=== PATIENT | female | born 1985 | race African-American/Black ===

== ENCOUNTER 2019-06-01 16:06 | Emergency (ER) | payer OTHER ==
[2019-06-01] MEDS ORDERED: ONDANSETRON 4 MG/2 ML VIAL IVP STA (16:37)
[2019-06-01] MEDS ORDERED: MORPHINE 2 MG/ML CARPUJECT IVP STA (16:37)
--- NOTE | 2019-06-01 16:37 | ED Physician Documentation ---
History of Present Illness - Stated complaint Stated Complaint: ABD PAIN - Chief complaint Chief Complaint: Abd Pain - Additonal information Additional information: This is a 34-year-old female presents with suprapubic lower abdominal pain. She states that she has had some pain along the incision that she has from 2 years ago. She has actually had some irritation in this area multiple times in the past, which she attributed to irritation from the scar, but this is worse than usual. She has not had any vomiting or diarrhea. No fever. This seemed to come on out of the blue. She tried taking Tylenol and this did not improve her symptoms. She had a period 1 week ago, but had a small amount of vaginal bleeding today as well. She denies concern for , denies concern for sexual transmitted infection, she is sexually active with her only. No vaginal itching or burning, no abnormal discharge. 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 - Present Medications Home Medications: Ambulatory Orders Medication Instructions Recorded Confirmed Cephalexin [Keflex] 500 mg PO Q6H #28 capsule 06/01/19 - Allergies Allergies/Adverse Reactions: Allergies Allergy/AdvReac Type Severity Reaction Status Date / Time No Known Drug Allergies Allergy Verified 06/01/19 16:20 - Living Situation Living Arrangement: reports: At home PD ED PE NORMAL - Vitals Vital signs reviewed: Yes - General General: Alert and oriented X 3, Other (Nontoxic-appearing) - HEENT HEENT: PERRL - Neck Neck: Supple, no meningeal sign - Cardiac Cardiac: RRR, No murmur - Respiratory Respiratory: Clear bilaterally - Abdomen Abdomen: Normal bowel sounds, Soft, Non distended, Other (There is some mild tenderness to palpation along the lower abdomen/prepubic region. This is central, she is not tender in the left or right lateral lower abdomen. No upper abdominal tenderness) - Derm Derm: Warm and dry - Extremities Extremities: No deformity - Neuro Neuro: Alert and oriented X 3 - Psych Psych: Normal mood, Normal affect Results - Vitals Vitals: Vital Signs - 24 hr 06/01/19 06/01/19 06/01/19 16:18 16:30 17:34 Temperature 36.8 C 36.9 C 37.1 C Heart Rate 78 73 66 Respiratory 17 20 16 Rate Blood Pressure 106/64 113/70 O2 Saturation 100 100 98 06/01/19 17:57 Temperature 36.8 C Heart Rate 63 Respiratory 16 Rate Blood Pressure 107/62 O2 Saturation 100 Oxygen O2 Source Room air - Labs Labs: Laboratory Tests 06/01/19 06/01/19 06/01/19 16:40 16:40 16:40 WBC 7.0 RBC 4.15 L Hgb 12.1 Hct 37.3 MCV 89.9 MCH 29.2 MCHC 32.4 RDW 13.2 Plt Count 235 MPV 10.8 Neut # (Auto) 4.3 Lymph # (Auto) 2.0 [place]yman # (Auto) 0.7 Eos # (Auto) 0.1 Baso # (Auto) 0.0 Absolute Nucleated RBC 0.00 Nucleated RBC % 0.0 Sodium 137 Potassium 3.7 Chloride 108 Carbon Dioxide 24 Anion Gap 5.0 L BUN 9 Creatinine 1.0 Estimated GFR (MDRD) 77 L Glucose 87 Calcium 9.0 Total Bilirubin 1.0 AST 20 ALT 13 Alkaline Phosphatase 46 Total Protein 7.5 Albumin 4.3 Globulin 3.2 Albumin/Globulin Ratio 1.3 Lipase 40 Serum HCG, Qual NEGATIVE Urine Color Urine Clarity Urine pH Ur Specific [place] Urine Protein Urine Glucose (UA) Urine Ketones Urine Occult Blood Urine Nitrite Urine Bilirubin Urine Urobilinogen Ur Leukocyte Esterase Urine RBC Urine WBC Ur Squamous Epith Cells Urine Bacteria Ur Microscopic Review Urine Culture Comments 06/01/19 16:50 WBC RBC Hgb Hct MCV MCH MCHC RDW Plt Count MPV Neut # (Auto) Lymph # (Auto) [place] # (Auto) Eos # (Auto) Baso # (Auto) Absolute Nucleated RBC Nucleated RBC % Sodium Potassium Chloride Carbon Dioxide Anion Gap BUN Creatinine Estimated GFR (MDRD) Glucose Calcium Total Bilirubin AST ALT Alkaline Phosphatase Total Protein Albumin Globulin Albumin/Globulin Ratio Lipase Serum HCG, Qual Urine Color YELLOW Urine Clarity HAZY Urine pH 7.5 Ur Specific [place] 1.020 Urine Protein NEGATIVE Urine Glucose (UA) NEGATIVE Urine Ketones NEGATIVE Urine Occult Blood LARGE H Urine Nitrite NEGATIVE Urine Bilirubin NEGATIVE Urine Urobilinogen 0.2 (NORMAL) Ur Leukocyte Esterase MODERATE H Urine RBC TNTC H Urine WBC 6-10 H Ur Squamous Epith Cells MOD Squamous H Urine Bacteria Moderate H Ur Microscopic Review INDICATED Urine Culture Comments NOT INDICATED PD MEDICAL DECISION MAKING - ED course Complexity details: considered differential (Cystitis, scar inflammation, ectopic , colitis, dysfunctional uterine bleeding, uterine cramping, torsion, appendicitis\) ED course: On exam patient is well appearing, her abdomen is quite benign, she does have some mild suprapubic tenderness to palpation. Labs were drawn and she has no leukocytosis, normal blood counts, her abdominal panel is unremarkable with a negative hCG, negative lipase. Her urine does show signs of a UTI with 10 white blood cells and moderate bacteria. On repeat examination after patient has received a low-dose of pain medication and Zofran she is feeling much better. Her abdomen remains benign she continues to have some very mild suprapubic discomfort. No lateral discomfort, specifically no right lower quadrant pain or tenderness that would suggest appendicitis at this time. In discussion with the patient she has had similar symptoms before which have passed on their own. Given she has some uterine bleeding it is possible that she may have some dysfunctional uterine bleeding or cramping that is contributing to her symptoms as well. I discussed the options of imaging with ultrasound or CT, patient is feeling much better and would prefer to go home and trial treatment with antibiotics for her apparent cystitis. She understands the risk of missed diagnoses and the need for prompt return with worsening or non-improvement. Given her benign exam, reassuring labs and vital signs, I feel this is reasonable. I doubt ovarian torsion given her improvement as well as the central location of her discomfort. She has no risk factors for sexually transmitted infections, she has no itching, burning, or abnormal vaginal discharge to suggest PID. I did send a Chlamydia gonorrhea urine test. After discussion of pelvic exam we will defer this today given her improvement. I discussed with patient that if she is not having improvement with the antibiotics or she is having any other new or worsening symptoms she is return to emergency department reevaluation and further testing. She agrees with this plan and was discharged home in good condition with a prescription for keflex. Departure - Departure Disposition: 01 Home, Self Care Clinical Impression: Abdominal pain Qualifiers: Abdominal location: unspecified location Qualified Code(s): R10.9 - Unspecified abdominal pain Condition: Good Instructions: ED Abdominal Pain Unkn Cause Prescriptions: Cephalexin [Keflex] 500 mg PO Q6H #28 capsule Comments: You were seen today for lower abdominal discomfort. Your labs are reassuring, do have a likely UTI which we will treat with a course of antibiotics. If your pain is not improving, or if you are having any other concerning symptoms you need to be re-evaluated by a provider (either here in the emergency department or with your primary doc) tomorrow to ensure this is not a more serious issue like appendicitis. Return to the emergency department if you have repeated vomiting, fever, severe abdominal pain or any other concerning symptoms. Discharge Date/Time: 06/01/19 18:19
[2019-06-01 16:47] LABS: BASOPHILS % (AUTO) 0.3 %; EOSINOPHILS # (AUTO) 0.1 10^3/uL (0.0-0.7); HGB - HEMOGLOBIN 12.1 g/dL (12.0-16.0); LYMPHOCYTES % (AUTO) 27.8 %; MEAN CORPUSCULAR HEMOGLOBIN 29.2 pg (27.0-31.0); MEAN CORPUSCULAR HGB CONC 32.4 g/dL (32.0-36.0); MEAN CORPUSCULAR VOLUME 89.9 fL (81.0-99.0); MEAN PLATELET VOLUME 10.8 fL (7.9-10.8); MONOCYTES # (AUTO) 0.7 10^3/uL (0.0-1.0); MONOCYTES % (AUTO) 9.4 %; NEUTROPHILS # (AUTO) 4.3 10^3/uL (1.5-6.6); NEUTROPHILS % (AUTO) 61.2 %; PLT - PLATELET COUNT 235 10^3/uL (130-450); RED BLOOD COUNT 4.15 10^6/uL (4.20-5.40); RED CELL DISTRIBUTION WIDTH 13.2 % (12.0-15.0)
[2019-06-01 16:58] LABS: BILIRUBIN,URINE NEGATIVE (NEGATIVE); CLARITY,URINE HAZY (CLEAR); GLUCOSE, URINE (UA) NEGATIVE (NEGATIVE); KETONES,URINE (UA) NEGATIVE (NEGATIVE); LEUKOCYTE ESTERASE, URINE MODERATE (NEGATIVE); NITRITE,URINE NEGATIVE (NEGATIVE); OCCULT BLOOD,URINE LARGE (NEGATIVE); PH,URINE 7.5 PH (5.0-7.5); PROTEIN,URINE NEGATIVE (NEGATIVE); UROBILINOGEN,URINE 0.2 (NORMAL) E.U./dL (NORMAL)
[2019-06-01 17:04] LABS: ALBUMIN 4.3 g/dL (3.2-5.5); ALBUMIN/GLOBULIN RATIO 1.3 (1.0-2.2); TOTAL PROTEIN 7.5 g/dL (6.7-8.2)
[2019-06-01 17:09] LABS: BACTERIA,URINE Moderate /HPF (None Seen); RBC,URINE TNTC /HPF (0-5); SQUAMOUS EPITHELIAL CELL,UR MOD Squamous (<= Few)
[2019-06-01 17:23] LABS: HCG,QUALITATIVE BLOOD NEGATIVE
[2019-06-01] MEDS ORDERED: cephALEXin 250 MG CAPSULE PO STA (17:51)
[2019-06-01 17:58] VITALS: BP 107/62
[2019-06-01 20:33] LABS: TRICHOMONAS VAGINALIS DNA NEGATIVE (NEGATIVE)
== END 2019-06-01 18:19 | disposition home or self-care (01) ==
LOC: ED 16:06
DX: R10.30 Lower abdominal pain, unspecified (principal); N93.9 Abnormal uterine and vaginal bleeding, unspecified
CPT/HCPCS: 36415; 80053; 81001; 83690; 84703; 85025; 87491; 87591; 87661; 96374; 99283; 99284; A9270; 81003; 87086

== ENCOUNTER 2021-02-24 12:06 | Emergency (ER) | payer OTHER ==
[2021-02-24 12:42] LABS: BILIRUBIN,URINE NEGATIVE (NEGATIVE); GLUCOSE, URINE (UA) NEGATIVE (NEGATIVE); KETONES,URINE (UA) NEGATIVE (NEGATIVE); LEUKOCYTE ESTERASE, URINE TRACE (NEGATIVE); NITRITE,URINE NEGATIVE (NEGATIVE); OCCULT BLOOD,URINE NEGATIVE (NEGATIVE); PROTEIN,URINE NEGATIVE (NEGATIVE); UROBILINOGEN,URINE 0.2 (NORMAL) E.U./dL (NORMAL)
[2021-02-24 12:44] LABS: HCG UR QUAL NEGATIVE
[2021-02-24 12:47] LABS: CLARITY,URINE CLEAR (CLEAR)
[2021-02-24 13:00] LABS: BACTERIA,URINE Few /HPF (None Seen); RBC,URINE 0-5 /HPF (0-5); SQUAMOUS EPITHELIAL CELL,UR MOD Squamous (<= Few); WBC,URINE 0-3 /HPF (0-5)
[2021-02-24 13:20] LABS: BASOPHILS % (AUTO) 0.2 %; EOSINOPHILS # (AUTO) 0.1 10^3/uL (0.0-0.7); EOSINOPHILS % (AUTO) 1.2 %; HCT - HEMATOCRIT 38.1 % (37.0-47.0); LYMPHOCYTES % (AUTO) 33.7 %; MEAN CORPUSCULAR HEMOGLOBIN 28.4 pg (27.0-31.0); MEAN CORPUSCULAR HGB CONC 31.5 g/dL (32.0-36.0); MEAN CORPUSCULAR VOLUME 90.3 fL (81.0-99.0); MEAN PLATELET VOLUME 11.5 fL (7.9-10.8); MONOCYTES # (AUTO) 0.6 10^3/uL (0.0-1.0); MONOCYTES % (AUTO) 9.3 %; NEUTROPHILS # (AUTO) 3.4 10^3/uL (1.5-6.6); NEUTROPHILS % (AUTO) 55.4 %; PLT - PLATELET COUNT 183 10^3/uL (130-450); RED BLOOD COUNT 4.22 10^6/uL (4.20-5.40); RED CELL DISTRIBUTION WIDTH 13.5 % (12.0-15.0)
--- NOTE | 2021-02-24 13:26 | ED Physician Documentation ---
PD HPI ABD PAIN - Stated complaint Stated Complaint: LOWER ABD PX/NAUSEA - Chief complaint Chief Complaint: Abd Pain - History obtained from History obtained from: Patient - History of Present Illness Timing - onset: How many weeks ago (2) Timing - duration: Weeks (2) Timing - details: Gradual onset, Still present (worsened the past 2 days.), Waxing and waning Quality: Cramping, Aching, Pain Location: RLQ, Suprapubic Radiation: No: Lower back, Right flank Improved by: Laying still. No: Eating Worsened by: Moving, Palpation. No: Eating Associated symptoms: Nausea. No: Fever, Vomiting, Diarrhea, Constipation, Dysuria, Vaginal bleeding, Vaginal dc Similar symptoms before: Has not had sx before Recently seen: Not recently seen Review of Systems Constitutional: denies: Fever, Chills Nose: denies: Rhinorrhea / runny nose, Congestion Throat: denies: Sore throat Respiratory: denies: Cough GI: reports: Abdominal Pain, Nausea. 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 - Present Medications Home Medications: Ambulatory Orders Medication Instructions Recorded Confirmed cephALEXin [Keflex] 500 mg PO Q6H #28 capsule 06/01/19 Docusate Sodium 100Mg Capsule 100 mg PO DAILY #10 cap 02/24/21 [Colace 100Mg Capsule] HYDROcod/ACETAM 5/325 [[place] 5/325] 1 ea PO Q6H PRN #14 tablet 02/24/21 Ibuprofen [Motrin] 600 mg PO TID PRN #20 tab 02/24/21 - Allergies Allergies/Adverse Reactions: Allergies Allergy/AdvReac Type Severity Reaction Status Date / Time No Known Drug Allergies Allergy Verified 02/24/21 12:34 - Social History Does the pt smoke?: No Smoking Status: Never smoker Does the pt drink ETOH?: No Does the pt have substance abuse?: No - Immunizations Immunizations are current?: Yes - POLST Patient has POLST: No PD ED PE NORMAL - Vitals Vital signs reviewed: Yes - General General: Alert and oriented X 3, Well developed/nourished - Neck Neck: Supple, no meningeal sign, No adenopathy - Cardiac Cardiac: RRR, No murmur - Respiratory Respiratory: Clear bilaterally - Abdomen Abdomen: Normal bowel sounds, Soft, Non distended, No organomegaly, Other (tender lower abd across both sides. No percussion nor rebound tenderness. ) - Female Female : Deferred - Rectal Rectal: Deferred - Back Back: No CVA TTP - Derm Derm: Normal color, Warm and dry - Neuro Neuro: Alert and oriented X 3, No motor deficit, Normal speech Results - Vitals Vitals: Oxygen O2 Source Room air - Labs Labs: Laboratory Tests 02/24/21 02/24/21 02/24/21 12:14 12:14 13:14 WBC 6.0 RBC 4.22 Hgb 12.0 Hct 38.1 MCV 90.3 MCH 28.4 MCHC 31.5 L RDW 13.5 Plt Count 183 MPV 11.5 H Neut # (Auto) 3.4 Lymph # (Auto) 2.0 [place] # (Auto) 0.6 Eos # (Auto) 0.1 Baso # (Auto) 0.0 Absolute Nucleated RBC 0.00 Nucleated RBC % 0.0 Sodium Potassium Chloride Carbon Dioxide Anion Gap BUN Creatinine Estimated GFR (MDRD) Glucose Calcium Total Bilirubin AST ALT Alkaline Phosphatase Total Protein Albumin Globulin Albumin/Globulin Ratio Lipase Urine Color YELLOW Urine Clarity CLEAR Urine pH 6.0 Ur Specific [place] 1.020 Urine Protein NEGATIVE Urine Glucose (UA) NEGATIVE Urine Ketones NEGATIVE Urine Occult Blood NEGATIVE Urine Nitrite NEGATIVE Urine Bilirubin NEGATIVE Urine Urobilinogen 0.2 (NORMAL) Ur Leukocyte Esterase TRACE H Urine RBC 0-5 Urine WBC 0-3 Ur Squamous Epith Cells MOD Squamous H Urine Bacteria Few Ur Microscopic Review INDICATED Urine Culture Comments NOT INDICATED Urine HCG, Qual NEGATIVE 02/24/21 13:14 WBC RBC Hgb Hct MCV MCH MCHC RDW Plt Count MPV Neut # (Auto) Lymph # (Auto) [place] # (Auto) Eos # (Auto) Baso # (Auto) Absolute Nucleated RBC Nucleated RBC % Sodium 139 Potassium 4.2 Chloride 106 Carbon Dioxide 25 Anion Gap 8.0 BUN 10 Creatinine 0.8 Estimated GFR (MDRD) 100 Glucose 95 Calcium 9.3 Total Bilirubin 1.0 AST 20 ALT 16 Alkaline Phosphatase 40 L Total Protein 8.2 Albumin 4.5 Globulin 3.7 Albumin/Globulin Ratio 1.2 Lipase 31 Urine Color Urine Clarity Urine pH Ur Specific [place] Urine Protein Urine Glucose (UA) Urine Ketones Urine Occult Blood Urine Nitrite Urine Bilirubin Urine Urobilinogen Ur Leukocyte Esterase Urine RBC Urine WBC Ur Squamous Epith Cells Urine Bacteria Ur Microscopic Review Urine Culture Comments Urine HCG, Qual - Rads (name of study) abd/pelvic CT Radiology: Prelim report reviewed (partly ruptured right hemorrhagic ovarian cyst with small to medium pelvic free fluid. ), See rad report PD MEDICAL DECISION MAKING - ED course Complexity details: reviewed results, re-evaluated patient (doing better with some meds. ), considered differential, d/w patient Departure - Departure Disposition: 01 Home, Self Care Clinical Impression: Lower abdominal pain, Ruptured ovarian cyst Condition: Stable Record reviewed to determine appropriate education?: Yes Instructions: ED Cyst Ovarian Follow-Up: GUILLERMO العراقي DO [Primary Care Provider] - Prescriptions: Docusate Sodium 100Mg Capsule [Colace 100Mg Capsule] 100 mg PO DAILY #10 cap Ibuprofen [Motrin] 600 mg PO TID PRN #20 tab PRN Reason: Pain HYDROcod/ACETAM 5/325 [[place] 5/325] 1 ea PO Q6H PRN #14 tablet PRN Reason: Pain Comments: Your CT scan shows a ruptured hemorrhagic cyst in the ovary. Is not completely deflated yet so there will be some ongoing discomfort as the fluid goes into the pelvis area. I would anticipate improvement over the next 2 to 3 days however. Anti-inflammatory of ibuprofen with food 3 times a day for the next several days to week. Add Tylenol or hydrocodone as needed for pain. Docusate stool softener daily for the next several days to week to prevent constipation from the pain medicine. Recheck with your primary care if not well improved into next week. If persistent symptoms, they can follow the cyst with an ultrasound more easily and you would not necessarily need a repeat CT scan as we know the other structures in the abdomen are good. Return to the ER if significantly worse pain, lightheadedness, fever, nausea vomiting or other concerns. [facility] I am prescribing a short course of narcotic pain medication for you. These are potentially dangerous and addictive medications that should be used carefully. These medications may constipate you. Take an [id number] stool softener such as docusate twice daily with plenty of water while taking these me dications. If you go 24 hours without a bowel movement, take [id number] MiraLAX, per package instructions. Do not drink or drive while taking these medications. If you received narcotic or sedating medications while in the emergency department do not drive for 24 hours. Store this medication in a safe, secure place and out of reach of children. It is a violation of federal law to give or sell this medication to another person or to use in a manner other than prescribed. The ED will not refill narcotic prescriptions, including prescriptions lost or stolen. You can dispose of unwanted medications at the [facility]'s office or at several pharmacies such as [facility]. Forms: Activity restrictions Discharge Date/Time: 02/24/21 15:24
[2021-02-24 13:35] LABS: ALBUMIN 4.5 g/dL (3.2-5.5); ALBUMIN/GLOBULIN RATIO 1.2 (1.0-2.2); CALCIUM 9.3 mg/dL (8.5-10.3); CREATININE 0.8 mg/dL (0.4-1.0); POTASSIUM 4.2 mmol/L (3.5-5.0); TOTAL PROTEIN 8.2 g/dL (6.7-8.2)
[2021-02-24] MEDS ORDERED: IOVERSOL 320 100 ML VIAL IVP ONE ×2 (14:15→14:54)
--- NOTE | 2021-02-24 14:42 | CT Report ---
PROCEDURE: Abdomen/Pelvis W INDICATIONS: lower abd pain for 1-2 wks, worse 2 days CONTRAST: IV CONTRAST: Optiray 320 ml: 100 PO CONTRAST: *NO PO CONTRAST TECHNIQUE: After the administration of intravenous contrast, 5 mm thick sections acquired from the diaphragms to the symphysis. 5 mm thick coronal and sagittal reformats were acquired. For radiation dose reducti on, the following was used: automated exposure control, adjustment of mA and/or kV according to paty ent size. COMPARISON: None. FINDINGS: There is a small to moderate volume intermediate density free fluid in the right hemipelvis, centered on a peripherally enhancing right ovarian cyst measuring approximately 2.1 x 1.1 cm. Findings are co nsistent with a ruptured hemorrhagic cyst and adjacent blood products. The left ovary, uterus, and ur inary bladder are within normal limits. No threshold enlarged pelvic or inguinal lymph nodes. Normal CT appearance of the liver, spleen, pancreas, gallbladder, adrenal glands, and kidneys. No hyd roureteronephrosis or perinephric fat stranding. Nonaneurysmal abdominal aorta. No threshold and larg e retroperitoneal or intra-abdominal lymph node. No abnormally dilated with thickened loop of bowel. No pericolonic or mesenteric inflammatory changes . Included portions of the lung bases are clear. No acute or suspicious osseous lesion. IMPRESSION: Ruptured right ovarian hemorrhagic cyst with a small to moderate volume hemorrhagic free fluid in the pelvis. No acute finding otherwise Reviewed by: Kale Acevedo MD on 02/24/2021 2:41 PM PDT Approved by: Kale Acevedo MD on 02/24/2021 2:41 PM PDT Station ID: [id number]
[2021-02-24] MEDS ORDERED: KETOROLAC 15 MG/ML VIAL IVP STA (15:04)
[2021-02-24] MEDS ORDERED: ACETAMINOPHEN 325 MG TABLET PO STA (15:04)
[2021-02-24 15:24] VITALS: BP 118/76
== END 2021-02-24 15:24 | disposition home or self-care (01) ==
LOC: ED 12:06
DX: N83.201 Unspecified ovarian cyst, right side (principal)
CPT/HCPCS: 36415; 74177; 80053; 81001; 81025; 83690; 85025; 96374; 99283; 99284; A9270; Q9967; 81003; 87086

== ENCOUNTER 2021-03-16 19:27 | Emergency (ER) | payer OTHER ==
[2021-03-16 19:39] VITALS: BP 132/86
[2021-03-16] MEDS ORDERED: KETOROLAC 60 MG/2 ML VIAL IM STA (20:37)
--- NOTE | 2021-03-16 20:43 | ED Physician Documentation ---
History of Present Illness - Stated complaint Stated Complaint: BACK PX,MIGRAINE - Chief complaint Chief Complaint: Back Pain - History obtained from History obtained from: Patient - Additonal information Additional information: , Presents with chronic back pain, worsening over the past couple of days. She states that she feels like she has a knot in the bilateral lower back radiating all the way up to the neck associated with headache. It is worse with bending over, aching, intermittently worsening, worse with exertion. 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 - Present Medications Home Medications: Ambulatory Orders Medication Instructions Recorded Confirmed cephALEXin [Keflex] 500 mg PO Q6H #28 capsule 06/01/19 Docusate Sodium 100Mg Capsule 100 mg PO DAILY #10 cap 02/24/21 [Colace 100Mg Capsule] HYDROcod/ACETAM 5/325 [[place] 5/325] 1 ea PO Q6H PRN #14 tablet 02/24/21 Ibuprofen [Motrin] 600 mg PO TID PRN #20 tab 02/24/21 Ketorolac [Toradol] 10 mg PO Q6H PRN #30 tablet 03/16/21 - Allergies Allergies/Adverse Reactions: Allergies Allergy/AdvReac Type Severity Reaction Status Date / Time No Known Drug Allergies Allergy Verified 02/24/21 12:34 - Social History Does the pt smoke?: No Smoking Status: Never smoker Does the pt drink ETOH?: No Does the pt have substance abuse?: No - Immunizations Immunizations are current?: Yes - POLST Patient has POLST: No PD ED PE NORMAL - Vitals Vital signs reviewed: Yes - General General: Alert and oriented X 3, No acute distress, Well developed/nourished - HEENT HEENT: Atraumatic, PERRL, EOMI - Neck Neck: Supple, no meningeal sign, No bony TTP - Back Back: No CVA TTP, No spinal TTP, Other (Bilateral lower back discomfort in a muscular distribution.) - Neuro Neuro: Alert and oriented X 3, marketing representative 2-12 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 Symptomatic care discussed. Return precautions given. Patient will follow up with her primary doctor. Departure - Departure Disposition: 01 Home, Self Care Clinical Impression: Chronic back pain Condition: Good Instructions: ED Low Back Pain Injury Prescriptions: Ketorolac [Toradol] 10 mg PO Q6H PRN #30 tablet PRN Reason: Pain Comments: You were seen in the emergency department for chronic back pain that has been worsening. You need to see your primary doctor to be evaluated for possible further imaging. Please take toradol with food as needed for pain but do not take other NSAIDS (ibuprofen, advil, motrin, naproxen) within 6 hours of toradol. For your headaches, please follow up with your doctor for referral to neurology. Return to the emergency department if you have any new or worsening symptoms or other concerns. Forms: Activity restrictions Discharge Date/Time: 03/16/21 21:20
== END 2021-03-16 21:20 | disposition home or self-care (01) ==
LOC: ED 19:27
DX: S39.012A Strain of muscle, fascia and tendon of lower back, initial encounter (principal); X58.XXXA Exposure to other specified factors, initial encounter; Y92.9 Unspecified place or not applicable
CPT/HCPCS: 96372; 99283

== ENCOUNTER 2021-04-18 10:08 | Emergency (ER) | payer OTHER ==
--- NOTE | 2021-04-18 12:27 | ED Physician Documentation ---
PD HPI BACK PAIN - Stated complaint Stated Complaint: BACK PAIN - Chief complaint Chief Complaint: Back Pain - History obtained from History obtained from: Patient - Additional information Additional information: 36-year-old woman has had about 4 5 months worth of back pain now after [place]. She is [employer]. She is taking ibuprofen and physical therapy. She was seen at [place] for what sounds like an MRI of her description and diagnosed with a facet issue. Pain is worse over the weekend without specific injury and she has numbness in the right leg. No saddle anesthesia or fevers. No possibility of . No other health problems. 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: section - Present Medications Home Medications: Ambulatory Orders Medication Instructions Recorded Confirmed cephALEXin [Keflex] 500 mg PO Q6H #28 capsule 06/01/19 Docusate Sodium 100Mg Capsule 100 mg PO DAILY #10 cap 02/24/21 [Colace 100Mg Capsule] HYDROcod/ACETAM 5/325 [[place] 5/325] 1 ea PO Q6H PRN #14 tablet 02/24/21 Ibuprofen [Motrin] 600 mg PO TID PRN #20 tab 02/24/21 Ketorolac [Toradol] 10 mg PO Q6H PRN #30 tablet 03/16/21 HYDROcod/ACETAM 5/325 [[place] 5/325] 1 - 2 tab PO Q6H PRN #15 tablet 04/18/21 predniSONE [Deltasone] 20 mg PO [id number] #21 tab 04/18/21 - Allergies Allergies/Adverse Reactions: Allergies Allergy/AdvReac Type Severity Reaction Status Date / Time No Known Drug Allergies Allergy Verified 04/18/21 10:20 - Social History Does the pt smoke?: No Smoking Status: Never smoker Does the pt drink ETOH?: No Does the pt have substance abuse?: No - Immunizations Immunizations are current?: Yes - POLST Patient has POLST: No PD ED PE NORMAL - Vitals Vital signs reviewed: Yes - General General: Alert and oriented X 3, No acute distress - HEENT HEENT: PERRL, EOMI - Neck Neck: Supple, no meningeal sign, No bony TTP - Back Back: Other (Kind of diffusely tender to the muscles of the paralumbar and parathoracic areas without specific point tenderness of the midline spine.) - Extremities Extremities: Other (She has diminished sensation in a right L4-L5 distribution, hypoactive reflexes throughout but grossly symmetric.) - Neuro Neuro: Alert and oriented X 3 Eye Opening: Spontaneous Motor: Obeys Commands Verbal: Oriented GCS Score: 15 Results - Vitals Vitals: Vital Signs - 24 hr 04/18/21 10:15 Temperature 36.2 C L Heart Rate 71 Respiratory 18 Rate Blood Pressure 121/78 O2 Saturation 98 Oxygen O2 Source Room air PD MEDICAL DECISION MAKING - ED course ED course: This patient has seemingly uncomplicated musculoskeletal back pain. The patient has no "red flags." Specifically denies IV drug use, fevers, incontinence, saddle anesthesia. Spinal epidural abscess was considered, given that the patient has no fever, is not diabetic, has no spinal tenderness, does not use IV drugs, and has no bilateral neurologic symptoms, the diagnosis of spinal epidural abscess is considered exceedingly unlikely. I am prescribing a short course of short-acting opioid pain medication for this patient. I have reviewed the patients [employer] and no concerning findings were noted. I have discussed that the opioids are for short term therapy only, and will not be refilled from the ED. Departure - Departure Disposition: 01 Home, Self Care Clinical Impression: Sciatica Qualifiers: Laterality: right Qualified Code(s): M54.31 - Sciatica, right side Condition: Good Record reviewed to determine appropriate education?: Yes Instructions: ED Sciatica Prescriptions: predniSONE [Deltasone] 20 mg PO [id number] #21 tab HYDROcod/ACETAM 5/325 [[place] 5/325] 1 - 2 tab PO Q6H PRN #15 tablet PRN Reason: Pain Comments: Prescription sent electronically to [facility] pharmacy. Call your doctor to arrange a follow-up appointment, make the next available appointment. In the interim, return anytime if worse or if new symptoms develop. I am prescribing a short course of narcotic pain medication for you. These are potentially dangerous and addictive medications that should be used carefully. These medications may constipate you. Take an lkef-[id number] stool softener (docusate) twice daily with plenty of water while taking these medications. If you go 24 hours without a bowel movement, take [id number] miralax, per package instructions. Do not drink or drive while taking these medications. If you received narcotic or sedating medications while in the emergency department, do not drive for 24 hours. Store this medication in a safe, secure place and out of reach of children. It is a violation of federal law to give or sell this medication to another person or to use in a manner other than prescribed. The ED will not refill narcotic prescriptions, including prescriptions lost or stolen. To dispose of unwanted medications: 1. [facility] at [address] in [place] has a medication drop box. They accept prescription medications (in pill form) Sunday through Sunday 9:00 a.m. to 5:00 p.m. 2. The [facility] [employer] [facility] accepts prescription medications (in pill form only) for disposal year round. Call for more information. 3. Contact the [facility] for the next [facility] sponsored prescription drug collection event. , [phone], or [phone]; Note that many narcotic pain relievers also contain Tylenol/acetaminophen. Please ensure that your total dose of acetaminophen from all sources does not exceed 3 g (3000 mg) per day. Forms: Activity restrictions
[2021-04-18 12:29] VITALS: BP 125/78
[2021-04-18] MEDS: HYDROcod/ACETAM 5/325 MG TABLET PO STA (12:32)
[2021-04-18] MEDS: predniSONE 20 MG TABLET PO STA (12:32)
== END 2021-04-18 12:33 | disposition home or self-care (01) ==
LOC: ED 10:08
DX: M54.41 Lumbago with sciatica, right side (principal); M54.6 Pain in thoracic spine
CPT/HCPCS: 99282; 99283; A9270; J7512

== ENCOUNTER 2021-06-12 14:51 | Emergency (ER) | payer OTHER ==
[2021-06-12 15:21] LABS: BASOPHILS % (AUTO) 0.3 %; EOSINOPHILS # (AUTO) 0.1 10^3/uL (0.0-0.7); EOSINOPHILS % (AUTO) 1.9 %; HCT - HEMATOCRIT 39.5 % (37.0-47.0); HGB - HEMOGLOBIN 12.9 g/dL (12.0-16.0); LYMPHOCYTES # (AUTO) 1.9 10^3/uL (1.5-3.5); LYMPHOCYTES % (AUTO) 28.2 %; MEAN CORPUSCULAR HEMOGLOBIN 29.3 pg (27.0-31.0); MEAN CORPUSCULAR HGB CONC 32.7 g/dL (32.0-36.0); MEAN CORPUSCULAR VOLUME 89.6 fL (81.0-99.0); MONOCYTES # (AUTO) 0.6 10^3/uL (0.0-1.0); MONOCYTES % (AUTO) 8.9 %; NEUTROPHILS # (AUTO) 4.1 10^3/uL (1.5-6.6); NEUTROPHILS % (AUTO) 60.6 %; PLT - PLATELET COUNT 208 10^3/uL (130-450); RED BLOOD COUNT 4.41 10^6/uL (4.20-5.40); WHITE BLOOD COUNT 6.7 x10^3/uL (4.8-10.8)
[2021-06-12 15:40] LABS: ALBUMIN 4.6 g/dL (3.2-5.5); ALBUMIN/GLOBULIN RATIO 1.2 (1.0-2.2); CALCIUM 9.8 mg/dL (8.5-10.3); POTASSIUM 4.1 mmol/L (3.5-5.0); TOTAL PROTEIN 8.3 g/dL (6.7-8.2)
[2021-06-12 15:42] LABS: BILIRUBIN,URINE NEGATIVE (NEGATIVE); GLUCOSE, URINE (UA) NEGATIVE (NEGATIVE); KETONES,URINE (UA) NEGATIVE (NEGATIVE); LEUKOCYTE ESTERASE, URINE TRACE (NEGATIVE); NITRITE,URINE NEGATIVE (NEGATIVE); OCCULT BLOOD,URINE NEGATIVE (NEGATIVE); PH,URINE 7.5 PH (5.0-7.5); PROTEIN,URINE NEGATIVE (NEGATIVE); UROBILINOGEN,URINE 0.2 (NORMAL) E.U./dL (NORMAL)
[2021-06-12 15:44] LABS: CLARITY,URINE CLEAR (CLEAR); HCG UR QUAL NEGATIVE
[2021-06-12 15:49] LABS: BACTERIA,URINE Rare /HPF (None Seen); RBC,URINE None Seen /HPF (0-5); SQUAMOUS EPITHELIAL CELL,UR MANY Squamous (<= Few); STARCH,URINE PRESENT; WBC,URINE 0-3 /HPF (0-5)
[2021-06-12] MEDS ORDERED: IBUPROFEN 800 MG TABLET PO STA (15:53)
--- NOTE | 2021-06-12 15:53 | ED Physician Documentation ---
PD HPI ABD PAIN - Stated complaint Stated Complaint: ABDOMENAL PX, 2 MONTHS NO MENS. CYCLE, NEG PREG - Chief complaint Chief Complaint: Abd Pain - History obtained from History obtained from: Patient - Additional information Additional information: Otherwise healthy 36-year-old woman who was previously regular on her menses has not had a menses in 2 months. Took a test at home which was negative. Over the last 2 weeks has developed progressive pelvic pain, both lower quadrants and radiating to the back. Its associated with some brownish discharge. She is not on control. Denies fevers. No urinary complaints. 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 - Present Medications Home Medications: Ambulatory Orders Medication Instructions Recorded Confirmed cephALEXin [Keflex] 500 mg PO Q6H #28 capsule 06/01/19 Docusate Sodium 100Mg Capsule 100 mg PO DAILY #10 cap 02/24/21 [Colace 100Mg Capsule] HYDROcod/ACETAM 5/325 [[place] 5/325] 1 ea PO Q6H PRN #14 tablet 02/24/21 Ibuprofen [Motrin] 600 mg PO TID PRN #20 tab 02/24/21 Ketorolac [Toradol] 10 mg PO Q6H PRN #30 tablet 03/16/21 HYDROcod/ACETAM 5/325 [[place] 5/325] 1 - 2 tab PO Q6H PRN #15 tablet 04/18/21 predniSONE [Deltasone] 20 mg PO [id number] #21 tab 04/18/21 - Allergies Allergies/Adverse Reactions: Allergies Allergy/AdvReac Type Severity Reaction Status Date / Time No Known Drug Allergies Allergy Verified 06/12/21 15:01 - Social History Does the pt smoke?: No Smoking Status: Never smoker Does the pt drink ETOH?: No Does the pt have substance abuse?: No - Immunizations Immunizations are current?: Yes - POLST Patient has POLST: No PD ED PE NORMAL - Vitals Vital signs reviewed: Yes - General General: Alert and oriented X 3, No acute distress - Abdomen Abdomen: Normal bowel sounds, Other (Some pelvic tenderness without surgical signs. Normal bowel sounds.) - Back Back: No CVA TTP, No spinal TTP - Derm Derm: Normal color, Warm and dry - Neuro Neuro: Alert and oriented X 3, Normal speech Results - Vitals Vitals: Vital Signs - 24 hr 06/12/21 14:57 Temperature 35.8 C L Heart Rate 75 Respiratory 18 Rate Blood Pressure 136/68 H O2 Saturation 100 Oxygen O2 Source Room air - Labs Labs: Laboratory Tests 06/12/21 06/12/21 06/12/21 15:18 15:18 15:35 WBC 6.7 RBC 4.41 Hgb 12.9 Hct 39.5 MCV 89.6 MCH 29.3 MCHC 32.7 RDW 13.0 Plt Count 208 MPV 11.0 H Neut # (Auto) 4.1 Lymph # (Auto) 1.9 [place] # (Auto) 0.6 Eos # (Auto) 0.1 Baso # (Auto) 0.0 Absolute Nucleated RBC 0.00 Nucleated RBC % 0.0 Sodium 140 Potassium 4.1 Chloride 102 Carbon Dioxide 29 Anion Gap 9.0 BUN 14 Creatinine 1.0 Estimated GFR (MDRD) 76 L Glucose 107 H Calcium 9.8 Total Bilirubin 1.0 AST 23 ALT 21 Alkaline Phosphatase 38 L Total Protein 8.3 H Albumin 4.6 Globulin 3.7 Albumin/Globulin Ratio 1.2 Lipase 38 Urine Color YELLOW Urine Clarity CLEAR Urine pH 7.5 Ur Specific [place] 1.010 Urine Protein NEGATIVE Urine Glucose (UA) NEGATIVE Urine Ketones NEGATIVE Urine Occult Blood NEGATIVE Urine Nitrite NEGATIVE Urine Bilirubin NEGATIVE Urine Urobilinogen 0.2 (NORMAL) Ur Leukocyte Esterase TRACE H Urine RBC None Seen Urine WBC 0-3 Ur Squamous Epith Cells MANY Squamous H Urine Bacteria Rare Urine Starch PRESENT Ur Microscopic Review INDICATED Urine Culture Comments NOT INDICATED Urine HCG, Qual NEGATIVE PD MEDICAL DECISION MAKING - ED course ED course: 36-year-old woman with a couple weeks of pelvic pain and missed menses. She is not . Ultrasound demonstrates evidence of PCOS which may be causative. She has been having trouble with conception which may be related. Discussed need for follow-up with gynecology and NSAIDs in the interim. Departure - Departure Disposition: 01 Home, Self Care Clinical Impression: Pelvic pain Condition: Good Record reviewed to determine appropriate education?: Yes Instructions: ED Pelvic Pain [facility] Comments: As discussed, it seems today that based on your ultrasound you may have what is called polycystic ovarian syndrome and this may be causing your pelvic pain and difficulty with conception. You [place] You can take ibuprofen [id number] per package instructions for the pain as needed.
--- NOTE | 2021-06-12 17:21 | Ultrasound Report ---
PROCEDURE: Pelvic w/Transvag+Doppler Comp INDICATIONS: pelvic pain TECHNIQUE: Real-time scanning was performed of the pelvic organs, with image documentation. Additional endovagi nal scanning was necessary due to incomplete visualization of the adnexal and endometrial structures by transabdominal scanning. COMPARISON: Correlation is made with prior abdomen and pelvis CT, 02/24/2021. FINDINGS: No pathologic free abdominal or pelvic fluid. Uterus: Uterus is normal in size at 6.6 x 3.8 x 4.5 cm. The uterus is anteverted and demonstrates a heterogeneous appearance, with a scar, with multiple cysts seen along the scar, w ith the largest cluster measuring up to 10 mm. The endometrium measures 4 mm in combined thickness. Ovaries: The right ovary measures 4.1 x 2.8 x 3.6 cm, with a calculated volume of 22 cc and the left ovary measures 2.9 x 2.6 x 4 cm, with a calculated volume of 16 cc. No significant ovarian abnormal ities are seen. There are more than 12 follicles seen on each side. There is a "string of pearls" appearance seen to each ovary. No adnexal masses are seen. Normal-appearing arterial waveforms are confirmed to each ovary. IMPRESSION: A cause of pelvic pain is not identified. Negative for ovarian torsion. More than 12 follicles can be seen involving each ovary. Please consider polycystic ovarian syndrome. scar, with cysts seen along the scar. Note: Concordant preliminary findings given by the school photograph editor upon the completion of the examination to Dr. Chang at 5:00 PM on 06/12/2021. Reviewed by: Rivera Almanza MD on 06/12/2021 4:20 PM [facility] Approved by: Rivera Almanza MD on 06/12/2021 4:20 PM [facility] Station ID: [id number]
[2021-06-12 17:45] VITALS: BP 124/74
== END 2021-06-12 17:45 | disposition home or self-care (01) ==
LOC: ED 14:51
DX: R10.2 Pelvic and perineal pain (principal); E28.2 Polycystic ovarian syndrome
CPT/HCPCS: 36415; 76830; 76856; 80053; 81001; 81025; 83690; 85025; 93975; 99283; 99284; A9270; 81003; 87086

== ENCOUNTER 2021-07-15 22:02 | Emergency (ER) | payer OTHER ==
[2021-07-15 22:12] VITALS: BP 116/65
--- NOTE | 2021-07-15 22:31 | ED Physician Documentation ---
History of Present Illness - Stated complaint Stated Complaint: RT ARM PX - Chief complaint Chief Complaint: Ext Problem - History obtained from History obtained from: Patient - History of Present Illness Timing: How many weeks ago (1) Pain level now: 3 - Additonal information Additional information: patient sustained right wrist fracture 5.5 month ago, with initial splint replaced with cast which subsequently was removed. She presents in a velcro wrist splint. Denies recent injury. Her chief complaint is gradually increasing pain and swelling over past week of the right lateral wrist (radial aspect) with pain and numbness radiating to hand and thumb and 2nd and third digits. She is still undergoing physical therapy. Review of Systems Constitutional: denies: Fever, Chills, Sweats Skin: reports: Reviewed and negative Musculoskeletal: reports: Extremity pain, Joint pain, Extremity swelling, Joint swelling Neurologic: reports: Numbness. 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: section - Present Medications Home Medications: Ambulatory Orders Medication Instructions Recorded Confirmed Docusate Sodium 100Mg Capsule 100 mg PO DAILY #10 cap 02/24/21 07/15/21 [Colace 100Mg Capsule] Ibuprofen [Motrin] 600 mg PO TID PRN #20 tab 02/24/21 07/15/21 Ketorolac [Toradol] 10 mg PO Q6H PRN #30 tablet 03/16/21 07/15/21 HYDROcod/ACETAM 5/325 [[place] 5/325] 1 - 2 tab PO Q6H PRN #15 tablet 04/18/21 07/15/21 - Allergies Allergies/Adverse Reactions: Allergies Allergy/AdvReac Type Severity Reaction Status Date / Time No Known Drug Allergies Allergy Verified 07/15/21 22:12 - Social History Does the pt smoke?: No Smoking Status: Never smoker Does the pt drink ETOH?: No Does the pt have substance abuse?: No - Immunizations Immunizations are current?: Yes - POLST Patient has POLST: No PD ED PE NORMAL - Vitals Vital signs reviewed: Yes - General General: Alert and oriented X 3, No acute distress, Well developed/nourished - Extremities Extremities: Other (mild swelling right wrist and hand, predominantly radial aspect and thenar eminence. no abnormal warmth/heat to touch, no erythema or other skin color changes) - Neuro Neuro: No motor deficit, Other (decreased LTS right thumb, 2nd and 3rd digits ) Results - Vitals Vitals: Oxygen O2 Source Room air PD MEDICAL DECISION MAKING - ED course Complexity details: considered differential, d/w patient ED course: Sustained right wrist fracture over 5 months ago, c/o 1 week of gradually increa sing pain, swelling, and numbness of lateral aspect right wrist to thumb and index and middle fingers. The symptoms are in distribution of median nerve, so could be caused by swelling which in turn is causing compression on median nerve. DVT would be unlikely explanation, and we discussed US for this possibility which she initially agreed with but then declined. There is no evidence of infectious process at this time. No reinjury; emergent imaging is not indicated at this time. She prefers to follow up with your PMD at this time. Departure - Departure Disposition: 01 Home, Self Care Clinical Impression: Pain of upper extremity Condition: Good Instructions: ED Symptoms No Dx Follow-Up: ALMAS Prather [Provider Group] Comments: The cause of your worsening swelling and pain of your right wrist is not clear at this time. As we discussed, ultrasound of your arm to assess possible blood clot was considered but you have declined this at this time. You can follow up with your primary care provider for reevaluation, or return to the emergency department at any time you want to be reevaluated. Discharge Date/Time: 07/15/21 23:19
== END 2021-07-15 23:19 | disposition home or self-care (01) ==
LOC: ED 22:02
DX: M25.531 Pain in right wrist (principal)
CPT/HCPCS: 99281; 99282

== ENCOUNTER 2021-11-08 12:14 | Emergency (ER) | payer OTHER ==
[2021-11-08] MEDS ORDERED: HYDROmorphone 0.5 MG/0.5 ML SYRINGE IM STA (13:06)
[2021-11-08] MEDS ORDERED: predniSONE 20 MG TABLET PO STA (13:06)
[2021-11-08] MEDS ORDERED: KETOROLAC 60 MG/2 ML VIAL IM STA (13:06)
--- NOTE | 2021-11-08 13:10 | ED Physician Documentation ---
History of Present Illness - Stated complaint Stated Complaint: MIGRAINE,SWOLLEN R HAND - Chief complaint Chief Complaint: Neuro - History obtained from History obtained from: Patient - Additonal information Additional information: The patient comes to the emergency department chief complaint of a flareup of her right-sided carpal tunnel syndrome for the last couple of days. She states she is already seen a hand specialist and is in physical therapy for her carpal tunnel. She wears a cock up wrist splint sometimes, as well. Patient states he began to flareup 2 days ago and that she has not slept much for the last 2 nights. Now because of not sleeping, she has a migraine. No fevers or chills. No acute injury to the hand. The patient only has ibuprofen Tylenol at home for her pain. Review of Systems Ten Systems: 10 systems reviewed and negative Constitutional: reports: Reviewed and negative Eyes: reports: Reviewed and negative Ears: reports: Reviewed and negative Nose: reports: Reviewed and negative Throat: reports: Reviewed and negative Cardiac: reports: Reviewed and negative Respiratory: reports: Reviewed and negative GI: reports: Reviewed and negative : reports: Reviewed and negative Skin: reports: Reviewed and negative Musculoskeletal: reports: Extremity pain, Extremity swelling Neurologic: reports: Headache Psychiatric: reports: Reviewed and negative Endocrine: reports: Reviewed and negative Immunocompromised: reports: Reviewed and negative PD PAST MEDICAL HISTORY - Past Medical History Cardiovascular: None Respiratory: None Neuro: None Endocrine/Autoimmune: None GI: None 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 : 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 HEENT: Chronic vision loss Psych: None Musculoskeletal: None Derm: None Other Past Medical History: 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 - Past Surgical History Past Surgical 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 - Present Medications Home Medications: Ambulatory Orders Medication Instructions Recorded Confirmed Ibuprofen [Motrin] 600 mg PO TID PRN #20 tab 02/24/21 11/08/21 Ketorolac [Toradol] 10 mg PO Q6H PRN #30 tablet 03/16/21 11/08/21 HYDROcod/ACETAM 5/325 [[place] 5/325] 1 - 2 tab PO Q6H PRN #15 tablet 04/18/21 11/08/21 HYDROcod/ACETAM 5/325 [[place] 5/325] 1 - 2 tablet PO Q6H PRN #10 tablet 11/08/21 predniSONE [Deltasone] 10 mg PO [id number] #42 tab 11/08/21 - Allergies Allergies/Adverse Reactions: Allergies Allergy/AdvReac Type Severity Reaction Status Date / Time No Known Drug Allergies Allergy Verified 11/08/21 12:28 - Social History Does the pt smoke?: No Smoking Status: Never smoker Does the pt drink ETOH?: No Does the pt have substance abuse?: No - Immunizations Immunizations are current?: Yes - POLST Patient has POLST: No PD ED PE NORMAL - Vitals Vital signs reviewed: Yes - General General: Alert and oriented X 3, Well developed/nourished, Other (The patient is laying in a dark room and appears somewhat uncomfortable but otherwise no distress.) - HEENT HEENT: Atraumatic, PERRL, EOMI, Moist mucous membranes - Neck Neck: Supple, no meningeal sign, No bony TTP, Other (Tenderness over bilateral cervical paraspinal musculature.) - Cardiac Cardiac: RRR, No murmur, Strong equal pulses - Respiratory Respiratory: No respiratory distress, Clear bilaterally - Derm Derm: Normal color, Warm and dry, No rash - Extremities Extremities: No deformity - Neuro Neuro: Alert and oriented X 3, robotics technologist 2-12 intact, Normal speech - Psych Psych: Normal mood, Normal affect Results - Vitals Vitals: Vital Signs - 24 hr 11/08/21 11/08/21 12:28 12:32 Temperature 36.8 C 36.8 C Heart Rate 66 66 Respiratory 16 16 Rate Blood Pressure 121/63 121/63 O2 Saturation 99 99 Oxygen O2 Source Room air PD MEDICAL DECISION MAKING - ED course Complexity details: considered differential, d/w patient ED course: Patient was treated symptomatically with I am Dilaudid and Toradol and p.o. prednisone.She already had specialty follow-up, physical therapy, and a cock up wrist splint for her carpal tunnel and I did not feel any further intervention was indicated in this regard. The patient was neurologically intact and I felt she was stable for discharge home. I have given her a work note, a prescription for meds for symptomatic control, and the usual indications for follow-up and return. Departure - Departure Disposition: 01 Home, Self Care Clinical Impression: Carpal tunnel syndrome of left wrist Migraine Qualifiers: Migraine type: unspecified Status migrainosus presence: without status migrainosus Intractability: not intractable Qualified Code(s): G43.909 - Migraine, unspecified, not intractable, without status migrainosus Condition: Stable Instructions: ED Headache Migraine, ED Carpal Tunnel Prescriptions: predniSONE [Deltasone] 10 mg PO [id number] #42 tab HYDROcod/ACETAM 5/325 [[place] 5/325] 1 - 2 tablet PO Q6H PRN #10 tablet PRN Reason: Pain Comments: Your prescription has been electronically transmitted to [facility] pharmacy in [place]. Forms: Activity restrictions
[2021-11-08 13:45] VITALS: BP 127/80
== END 2021-11-08 14:47 | disposition home or self-care (01) ==
LOC: ED 12:14
DX: G56.01 Carpal tunnel syndrome, right upper limb (principal); G43.909 Migraine, unspecified, not intractable, without status migrainosus
CPT/HCPCS: 96372; 99283; 99284; J1170; J7512

== ENCOUNTER 2021-12-18 16:34 | Emergency (ER) | payer OTHER ==
--- OUTSIDE RECORDS SUMMARY | 2021-12-18 16:43 | EXTERNAL MEDICAL SUMMARY RPT | Continuity of Care Document ---
:1985 Author Organization [facility] Address [address] [place] [address] Phone Allergies No information. Encounters No information. Functional Status No information. Immunizations No information. Medications date description facility [id number] medroxyprogesterone acetate 10 MG [facility] Tablet Problems No information. Procedures date description facility [id number] [facility] Results/Labs test date author facility value unit interpret ation Result panel 1 (unknown) (no (unknown) (unknown) (no value) (units (unk nown) date) unknown) (unknown) (no (unknown) (unknown) (no value) (units (unk nown) date) unknown) (unknown) (no (unknown) (unknown) (no value) (units (unk nown) date) unknown) (unknown) (no (unknown) (unknown) 11/09/21 (units (unkno wn) date) unknown) (unknown) (no (unknown) (unknown) 13:34 (units (unkno wn) date) unknown) (unknown) (no (unknown) (unknown) [place], [place] (units ( unknown) date) [id number] unknown) (unknown) (no (unknown) (unknown) Draft (units (unkno wn) date) unknown) (unknown) (no (unknown) (unknown) [facility] ([facility] date[facility] unknown) (unknown) (no (unknown) (unknown) Gynecology Visit (units (unknown) date) unknown) (unknown) (no (unknown) (unknown) (no value) (units (unk nown) date) unknown) (unknown) (no (unknown) (unknown) 11/09/21 (units (unkno wn) date) unknown) (unknown) (no (unknown) (unknown) 930 (units (unkno wn) date) unknown) (unknown) (no (unknown) (unknown) Age/Sex: 36 / F (units (unknown) date) Date of unknown) Service: (unknown) (no (unknown) (unknown) Allergies (units (unkn own) date) unknown) (unknown) (no (unknown) (unknown) Anesthesia (units (unk nown) date) unknown) (unknown) (no (unknown) (unknown) Attending Dr: (units ( unknown) date) Iban Mcwilliams unknown) (unknown) (no (unknown) (unknown) BP 106/68 (units (u nknown) date) unknown) (unknown) (no (unknown) (unknown) Blood Pressure (units (unknown) date) Location Rt unknown) brachial (unknown) (no (unknown) (unknown) : 1985 (units (unknown) date) Acct:[id number] unknown) (unknown) (no (unknown) (unknown) Dept at (units (unkno wn) date) . unknown) (unknown) (no (unknown) (unknown) Documented By: (units (unknown) date) Iban Mcwilliams unknown) 11/09/21 1334 (unknown) (no (unknown) (unknown) Height 5 ft 5 (units (unknown) date) in unknown) (unknown) (no (unknown) (unknown) History of (units (unk nown) date) section unknown) (-04/23/17) (unknown) (no (unknown) (unknown) Intake (units (unkno wn) date) unknown) (unknown) (no (unknown) (unknown) Intake Note: (units (u nknown) date) unknown) (unknown) (no (unknown) (unknown) Intake performed (units (unknown) date) by: unknown) Aleksander Banuelos (unknown) (no (unknown) (unknown) Intake- Clincial (units (unknown) date) Staff unknown) (unknown) (no (unknown) (unknown) Irregular (units (unkn own) date) menstrual cycle unknown) (unknown) (no (unknown) (unknown) Loc: [facility] (units (unkno wn) date) unknown) (unknown) (no (unknown) (unknown) Medical History (units (unknown) date) (Reviewed unknown) 07/30/21 @ 13:57 by Iban Mcwilliams MD) (unknown) (no (unknown) (unknown) No Known Drug (units ( unknown) date) Allergies Allergy unknown) (Verified 07/27/21 09:38) (unknown) (no (unknown) (unknown) Ovarian cyst (units (u nknown) date) unknown) (unknown) (no (unknown) (unknown) PFSH (units (unkno wn) date) unknown) (unknown) (no (unknown) (unknown) Painful (units (unkno wn) date) menstrual periods unknown) (unknown) (no (unknown) (unknown) Patient: (units (unkno wn) date) Mercy Fisher unknown) MR#: [id number] (unknown) (no (unknown) (unknown) Position (units (unkno wn) date) Sitting unknown) (unknown) (no (unknown) (unknown) Pt here to (units (unk nown) date) discuss PCOS and unknown) her next steps (unknown) (no (unknown) (unknown) Reason For Visit (units (unknown) date) unknown) (unknown) (no (unknown) (unknown) Signed By: (units (unk nown) date) unknown) (unknown) (no (unknown) (unknown) Smoking Status: (units (unknown) date) Never smoker unknown) (unknown) (no (unknown) (unknown) Surgical History (units (unknown) date) (Reviewed unknown) 07/30/21 @ 13:57 by Iban Mcwilliams MD) (unknown) (no (unknown) (unknown) This note may (units ( unknown) date) have been all or unknown) partially generated using voice recognition (unknown) (no (unknown) (unknown) Tobacco + (units (unkn own) date) Substance Use unknown) (unknown) (no (unknown) (unknown) Tobacco Status (units (unknown) date) unknown) (unknown) (no (unknown) (unknown) Vision disorder (units (unknown) date) unknown) (unknown) (no (unknown) (unknown) Visit Reasons: (units (unknown) date) PCOS Discuss next unknown) steps (unknown) (no (unknown) (unknown) Vitals (units (unkno wn) date) unknown) (unknown) (no (unknown) (unknown) have occurred. (units (unknown) date) If there are any unknown) questions, please contact the Medical Records (unknown) (no (unknown) (unknown) may occur. (units (unk nown) date) Occasional unknown) wrong-word or 'sound-alike' substitutions may have (unknown) (no (unknown) (unknown) occurred due to (units (unknown) date) the inherent unknown) limitations of voice recognition software. Please (unknown) (no (unknown) (unknown) read the note (units ( unknown) date) carefully and unknown) recognize, using context, where these substitutions (unknown) (no (unknown) (unknown) software. (units (unkn own) date) Although every unknown) effort is made to edit content, nuclear scientist errors Result panel 2 (unknown) (no (unknown) (unknown) (no value) (units (unk nown) date) unknown) (unknown) (no (unknown) (unknown) (no value) (units (unk nown) date) unknown) (unknown) (no (unknown) (unknown) (no value) (units (unk nown) date) unknown) (unknown) (no (unknown) (unknown) 11/09/21 (units (unkno wn) date) unknown) (unknown) (no (unknown) (unknown) 13:34 (units (unkno wn) date) unknown) (unknown) (no (unknown) (unknown) [place] (units ( unknown) date) [id number] unknown) (unknown) (no (unknown) (unknown) Draft (units (unkno wn) date) unknown) (unknown) (no (unknown) (unknown) [facility] ([facility] date[facility] unknown) (unknown) (no (unknown) (unknown) Gynecology Visit (units (unknown) date) unknown) (unknown) (no (unknown) (unknown) (no value) (units (unk nown) date) unknown) (unknown) (no (unknown) (unknown) 11/09/21 (units (unkno wn) date) unknown) (unknown) (no (unknown) (unknown) 930 (units (unkno wn) date) unknown) (unknown) (no (unknown) (unknown) Age/Sex: 36 / F (units (unknown) date) Date of unknown) Service: (unknown) (no (unknown) (unknown) Allergies (units (unkn own) date) unknown) (unknown) (no (unknown) (unknown) Anesthesia (units (unk nown) date) unknown) (unknown) (no (unknown) (unknown) Attending Dr: (units ( unknown) date) Iban Mcwilliams unknown) (unknown) (no (unknown) (unknown) BP 106/68 (units (u nknown) date) unknown) (unknown) (no (unknown) (unknown) Blood Pressure (units (unknown) date) Location Rt unknown) brachial (unknown) (no (unknown) (unknown) : 1985 (units (unknown) date) Acct:[id number] unknown) (unknown) (no (unknown) (unknown) Dept at (units (unkno wn) date) . unknown) (unknown) (no (unknown) (unknown) Documented By: (units (unknown) date) Iban Mcwilliams unknown) 11/09/21 1334 (unknown) (no (unknown) (unknown) Height 5 ft 5 (units (unknown) date) in unknown) (unknown) (no (unknown) (unknown) History of (units (unk nown) date) section unknown) (-04/23/17) (unknown) (no (unknown) (unknown) Intake (units (unkno wn) date) unknown) (unknown) (no (unknown) (unknown) Intake Note: (units (u nknown) date) unknown) (unknown) (no (unknown) (unknown) Intake performed (units (unknown) date) by: unknown) Aleksander Banuelos (unknown) (no (unknown) (unknown) Intake- Clincial (units (unknown) date) Staff unknown) (unknown) (no (unknown) (unknown) Irregular (units (unkn own) date) menstrual cycle unknown) (unknown) (no (unknown) (unknown) Loc: [facility] (units (unkno wn) date) unknown) (unknown) (no (unknown) (unknown) Medical History (units (unknown) date) (Reviewed unknown) 07/30/21 @ 13:57 by Iban Mcwilliams MD) (unknown) (no (unknown) (unknown) No Known Drug (units ( unknown) date) Allergies Allergy unknown) (Verified 07/27/21 09:38) (unknown) (no (unknown) (unknown) Ovarian cyst (units (u nknown) date) unknown) (unknown) (no (unknown) (unknown) PFSH (units (unkno wn) date) unknown) (unknown) (no (unknown) (unknown) Painful (units (unkno wn) date) menstrual periods unknown) (unknown) (no (unknown) (unknown) Patient: (units (unkno wn) date) Mercy Fisher unknown) MR#: [id number] (unknown) (no (unknown) (unknown) Position (units (unkno wn) date) Sitting unknown) (unknown) (no (unknown) (unknown) Pt has been (units (unk nown) date) experiencing all unknown) of the symptoms of a normal menstrual cycle, but no (unknown) (no (unknown) (unknown) Pt here to (units (unk nown) date) discuss PCOS and unknown) her next steps (unknown) (no (unknown) (unknown) Pt reports (units (unk nown) date) cramping is unknown) severe and keeps her from normal activity some days (unknown) (no (unknown) (unknown) Reason For Visit (units (unknown) date) unknown) (unknown) (no (unknown) (unknown) Signed By: (units (unk nown) date) unknown) (unknown) (no (unknown) (unknown) Smoking Status: (units (unknown) date) Never smoker unknown) (unknown) (no (unknown) (unknown) Surgical History (units (unknown) date) (Reviewed unknown) 07/30/21 @ 13:57 by Ibna Mcwilliams MD) (unknown) (no (unknown) (unknown) This note may (units ( unknown) date) have been all or unknown) partially generated using voice recognition (unknown) (no (unknown) (unknown) Tobacco + (units (unkn own) date) Substance Use unknown) (unknown) (no (unknown) (unknown) Tobacco Status (units (unknown) date) unknown) (unknown) (no (unknown) (unknown) Vision disorder (units (unknown) date) unknown) (unknown) (no (unknown) (unknown) Visit Reasons: (units (unknown) date) PCOS Discuss next unknown) steps (unknown) (no (unknown) (unknown) Vitals (units (unkno wn) date) unknown) (unknown) (no (unknown) (unknown) bleeding for 2mo (units (unknown) date) unknown) (unknown) (no (unknown) (unknown) have occurred. (units (unknown) date) If there are any unknown) questions, please contact the Medical Records (unknown) (no (unknown) (unknown) may occur. (units (unk nown) date) Occasional unknown) wrong-word or 'sound-alike' substitutions may have (unknown) (no (unknown) (unknown) occurred due to (units (unknown) date) the inherent unknown) limitations of voice recognition software. Please (unknown) (no (unknown) (unknown) read the note (units ( unknown) date) carefully and unknown) recognize, using context, where these substitutions (unknown) (no (unknown) (unknown) software. (units (unkn own) date) Although every unknown) effort is made to edit content, nuclear scientist errors Result panel 3 (unknown) (no (unknown) (unknown) (no value) (units (unk nown) date) unknown) (unknown) (no (unknown) (unknown) Medications: (units (u nknown) date) unknown) (unknown) (no (unknown) (unknown) (no value) (units (unk nown) date) unknown) (unknown) (no (unknown) (unknown) (no value) (units (unk nown) date) unknown) (unknown) (no (unknown) (unknown) 11/09/21 (units (unkno wn) date) unknown) (unknown) (no (unknown) (unknown) 13:34 (units (unkno wn) date) unknown) (unknown) (no (unknown) (unknown) [place], [place] [id number] (unit s (unknown) date) unknown) (unknown) (no (unknown) (unknown) Draft (units (unkno wn) date) unknown) (unknown) (no (unknown) (unknown) [facility] ([facility] date[facility] unknown) (unknown) (no (unknown) (unknown) Gynecology Visit (units (unknown) date) unknown) (unknown) (no (unknown) (unknown) Start your first (units (unknown) date) pack on the first day unknown) of your next period. 1 tab PO DAILY 84 (unknown) (no (unknown) (unknown) You can expect to (units (unknown) date) start your period 2-3 unknown) days after finishing this medication. (unknown) (no (unknown) (unknown) (no value) (units (unk nown) date) unknown) (unknown) (no (unknown) (unknown) 11/09/21 (units (unkno wn) date) unknown) (unknown) (no (unknown) (unknown) 10 mg PO DAILY 10 (units (unknown) date) tabs 0RF 10 days unknown) (unknown) (no (unknown) (unknown) 930 (units (unkno wn) date) unknown) (unknown) (no (unknown) (unknown) Age/Sex: 36 / F (units (unknown) date) Date of Service: unknown) (unknown) (no (unknown) (unknown) Allergies (units (unkn own) date) unknown) (unknown) (no (unknown) (unknown) Anesthesia (units (unk nown) date) unknown) (unknown) (no (unknown) (unknown) Assessment + Plan (units (unknown) date) unknown) (unknown) (no (unknown) (unknown) Attending Dr: Iban (uni ts (unknown) date) Suraj Mcwilliams MD unknown) (unknown) (no (unknown) (unknown) BP 106/68 (units (u nknown) date) unknown) (unknown) (no (unknown) (unknown) Blood Pressure (units (unknown) date) Location Rt unknown) brachial (unknown) (no (unknown) (unknown) Chief Complaint (units (unknown) date) unknown) (unknown) (no (unknown) (unknown) Chief Complaint: LLQ (uni ts (unknown) date) pain unknown) (unknown) (no (unknown) (unknown) : 1985 (units (unknown) date) Acct:[id number] unknown) (unknown) (no (unknown) (unknown) Dept at (units (unkno wn) date) . unknown) (unknown) (no (unknown) (unknown) Documented By: (units (unknown) date) Iban Mcwilliams MD unknown) 11/09/21 1334 (unknown) (no (unknown) (unknown) HPI (units (unkno wn) date) unknown) (unknown) (no (unknown) (unknown) Height 5 ft 5 in (unit s (unknown) date) unknown) (unknown) (no (unknown) (unknown) History of (unit s (unknown) date) section (-04/23/17) unknown) (unknown) (no (unknown) (unknown) Intake (units (unkno wn) date) unknown) (unknown) (no (unknown) (unknown) Intake Note: (units (u nknown) date) unknown) (unknown) (no (unknown) (unknown) Intake performed by: (uni ts (unknown) date) Aleksander Banuelos unknown) (unknown) (no (unknown) (unknown) Intake- Clincial (units (unknown) date) Staff unknown) (unknown) (no (unknown) (unknown) Irregular menstrual (unit s (unknown) date) cycle unknown) (unknown) (no (unknown) (unknown) Loc: [facility] (units (unkno wn) date) unknown) (unknown) (no (unknown) (unknown) Medical History (units (unknown) date) (Reviewed 07/30/21 @ unknown) 13:57 by Iban Mcwilliams MD) (unknown) (no (unknown) (unknown) New (units (unkno wn) date) unknown) (unknown) (no (unknown) (unknown) No Known Drug (units ( unknown) date) Allergies Allergy unknown) (Verified 07/27/21 09:38) (unknown) (no (unknown) (unknown) Ovarian cyst (units (u nknown) date) unknown) (unknown) (no (unknown) (unknown) PFSH (units (unkno wn) date) unknown) (unknown) (no (unknown) (unknown) Painful menstrual (units (unknown) date) periods unknown) (unknown) (no (unknown) (unknown) Patient: Mercy Fisher (uni ts (unknown) date) MR#: [id number] unknown) (unknown) (no (unknown) (unknown) Position Sitting (unit s (unknown) date) unknown) (unknown) (no (unknown) (unknown) Pt has been (units (unk nown) date) experiencing all of unknown) the symptoms of a normal menstrual cycle, but no (unknown) (no (unknown) (unknown) Pt here to discuss (units (unknown) date) PCOS and her next unknown) steps (unknown) (no (unknown) (unknown) Pt reports cramping (unit s (unknown) date) is severe and keeps unknown) her from normal activity some days (unknown) (no (unknown) (unknown) Reason For Visit (units (unknown) date) unknown) (unknown) (no (unknown) (unknown) Signed By: (units (unk nown) date) unknown) (unknown) (no (unknown) (unknown) Smoking Status: (units (unknown) date) Never smoker unknown) (unknown) (no (unknown) (unknown) Surgical History (units (unknown) date) (Reviewed 07/30/21 @ unknown) 13:57 by Iban Mcwilliams MD) (unknown) (no (unknown) (unknown) This note may have (units (unknown) date) been all or partially unknown) generated using voice recognition (unknown) (no (unknown) (unknown) Tobacco + Substance (unit s (unknown) date) Use unknown) (unknown) (no (unknown) (unknown) Tobacco Status (units (unknown) date) unknown) (unknown) (no (unknown) (unknown) Vision disorder (units (unknown) date) unknown) (unknown) (no (unknown) (unknown) Visit Reasons: PCOS (unit s (unknown) date) Discuss next steps unknown) (unknown) (no (unknown) (unknown) Vitals (units (unkno wn) date) unknown) (unknown) (no (unknown) (unknown) bleeding for 2mo (units (unknown) date) unknown) (unknown) (no (unknown) (unknown) drospirenone-ethinyl (uni ts (unknown) date) estradiol 3-0.02 mg unknown) ([place] (28)) (unknown) (no (unknown) (unknown) have occurred. If (units (unknown) date) there are any unknown) questions, please contact the Medical Records (unknown) (no (unknown) (unknown) may occur. (units (unk nown) date) Occasional wrong-word unknown) or 'sound-alike' substitutions may have (unknown) (no (unknown) (unknown) medroxyprogesterone (unit s (unknown) date) (Provera) unknown) (unknown) (no (unknown) (unknown) occurred due to the (unit s (unknown) date) inherent limitations unknown) of voice recognition software. Please (unknown) (no (unknown) (unknown) read the note (units ( unknown) date) carefully and unknown) recognize, using context, where these substitutions (unknown) (no (unknown) (unknown) software. Although (units (unknown) date) every effort is made unknown) to edit content, nuclear scientist errors (unknown) (no (unknown) (unknown) tabs 4RF (units (unkno wn) date) unknown) Result panel 4 (unknown) (no (unknown) (unknown) (no value) (units (unk nown) date) unknown) (unknown) (no (unknown) (unknown) Medications: (units (u nknown) date) unknown) (unknown) (no (unknown) (unknown) Orders: (units (unkno wn) date) unknown) (unknown) (no (unknown) (unknown) (no value) (units (unk nown) date) unknown) (unknown) (no (unknown) (unknown) (no value) (units (unk nown) date) unknown) (unknown) (no (unknown) (unknown) 11/09/21 (units (unkno wn) date) unknown) (unknown) (no (unknown) (unknown) 13:34 (units (unkno wn) date) unknown) (unknown) (no (unknown) (unknown) [place] [address] (unit s (unknown) date) unknown) (unknown) (no (unknown) (unknown) Draft (units (unkno wn) date) unknown) (unknown) (no (unknown) (unknown) [facility]units ([facility] date[facility] unknown) (unknown) (no (unknown) (unknown) Gynecology Visit (units (unknown) date) unknown) (unknown) (no (unknown) (unknown) Start your first (units (unknown) date) pack on the first day unknown) of your next period. 1 tab PO DAILY (unknown) (no (unknown) (unknown) You can expect to (units (unknown) date) start your period 2-3 unknown) days after finishing this medication. (unknown) (no (unknown) (unknown) (no value) (units (unk nown) date) unknown) (unknown) (no (unknown) (unknown) 11/09/21 (units (unkno wn) date) unknown) (unknown) (no (unknown) (unknown) 10 mg PO DAILY 10 (units (unknown) date) days 10 tabs 0RF unknown) (unknown) (no (unknown) (unknown) 84 tabs 4RF (units (un known) date) unknown) (unknown) (no (unknown) (unknown) 930 (units (unkno wn) date) unknown) (unknown) (no (unknown) (unknown) Age/Sex: 36 / F (units (unknown) date) Date of Service: unknown) (unknown) (no (unknown) (unknown) Allergies (units (unkn own) date) unknown) (unknown) (no (unknown) (unknown) Anesthesia (units (unk nown) date) unknown) (unknown) (no (unknown) (unknown) Assessment + Plan (units (unknown) date) unknown) (unknown) (no (unknown) (unknown) Attending Dr: Iban (uni ts (unknown) date) Suraj Mcwilliams MD unknown) (unknown) (no (unknown) (unknown) BP 106/68 (units (u nknown) date) unknown) (unknown) (no (unknown) (unknown) Blood Pressure (units (unknown) date) Location Rt unknown) brachial (unknown) (no (unknown) (unknown) Chief Complaint (units (unknown) date) unknown) (unknown) (no (unknown) (unknown) Chief Complaint: LLQ (uni ts (unknown) date) pain unknown) (unknown) (no (unknown) (unknown) : 1985 (units (unknown) date) Acct:[id number] unknown) (unknown) (no (unknown) (unknown) Dept at (units (unkno wn) date) . unknown) (unknown) (no (unknown) (unknown) Details: (units (unkno wn) date) unknown) (unknown) (no (unknown) (unknown) Documented By: (units (unknown) date) Iban Mcwilliams MD unknown) 11/09/21 1334 (unknown) (no (unknown) (unknown) [place] returns (units (unknown) date) unknown) (unknown) (no (unknown) (unknown) HPI (units (unkno wn) date) unknown) (unknown) (no (unknown) (unknown) Height 5 ft 5 in (unit s (unknown) date) unknown) (unknown) (no (unknown) (unknown) History of (unit s (unknown) date) section (-04/23/17) unknown) (unknown) (no (unknown) (unknown) Intake (units (unkno wn) date) unknown) (unknown) (no (unknown) (unknown) Intake Note: (units (u nknown) date) unknown) (unknown) (no (unknown) (unknown) Intake performed by: (uni ts (unknown) date) Aleksander Banuelos unknown) (unknown) (no (unknown) (unknown) Intake- Clincial (units (unknown) date) Staff unknown) (unknown) (no (unknown) (unknown) Irregular menstrual (unit s (unknown) date) cycle unknown) (unknown) (no (unknown) (unknown) Loc: [facility] (units (unkno wn) date) unknown) (unknown) (no (unknown) (unknown) Medical History (units (unknown) date) (Reviewed 07/30/21 @ unknown) 13:57 by Iban Mcwilliams MD) (unknown) (no (unknown) (unknown) New (units (unkno wn) date) unknown) (unknown) (no (unknown) (unknown) No Known Drug (units ( unknown) date) Allergies Allergy unknown) (Verified 07/27/21 09:38) (unknown) (no (unknown) (unknown) Ovarian cyst (units (u nknown) date) unknown) (unknown) (no (unknown) (unknown) PFSH (units (unkno wn) date) unknown) (unknown) (no (unknown) (unknown) Painful menstrual (units (unknown) date) periods unknown) (unknown) (no (unknown) (unknown) Patient: Mercy Fisher (uni ts (unknown) date) MR#: [id number] unknown) (unknown) (no (unknown) (unknown) Position Sitting (unit s (unknown) date) unknown) (unknown) (no (unknown) (unknown) Pt has been (units (unk nown) date) experiencing all of unknown) the symptoms of a normal menstrual cycle, but no (unknown) (no (unknown) (unknown) Pt here to discuss (units (unknown) date) PCOS and her next unknown) steps (unknown) (no (unknown) (unknown) Pt reports cramping (unit s (unknown) date) is severe and keeps unknown) her from normal activity some days (unknown) (no (unknown) (unknown) Reason For Visit (units (unknown) date) unknown) (unknown) (no (unknown) (unknown) Referral (units (unkno wn) date) Gastroenterology unknown) R10.32 - Left lower quadrant pain (unknown) (no (unknown) (unknown) Referrals (units (unkn own) date) unknown) (unknown) (no (unknown) (unknown) Signed By: (units (unk nown) date) unknown) (unknown) (no (unknown) (unknown) Smoking Status: (units (unknown) date) Never smoker unknown) (unknown) (no (unknown) (unknown) Surgical History (units (unknown) date) (Reviewed 07/30/21 @ unknown) 13:57 by Iban Mcwilliams MD) (unknown) (no (unknown) (unknown) This note may have (units (unknown) date) been all or partially unknown) generated using voice recognition (unknown) (no (unknown) (unknown) Tobacco + Substance (unit s (unknown) date) Use unknown) (unknown) (no (unknown) (unknown) Tobacco Status (units (unknown) date) unknown) (unknown) (no (unknown) (unknown) Vision disorder (units (unknown) date) unknown) (unknown) (no (unknown) (unknown) Visit Reasons: PCOS (unit s (unknown) date) Discuss next steps unknown) (unknown) (no (unknown) (unknown) Vitals (units (unkno wn) date) unknown) (unknown) (no (unknown) (unknown) bleeding for 2mo (units (unknown) date) unknown) (unknown) (no (unknown) (unknown) drospirenone-ethinyl (uni ts (unknown) date) estradiol 3-0.02 mg unknown) ([place] (28)) (unknown) (no (unknown) (unknown) have occurred. If (units (unknown) date) there are any unknown) questions, please contact the Medical Records (unknown) (no (unknown) (unknown) may occur. (units (unk nown) date) Occasional wrong-word unknown) or 'sound-alike' substitutions may have (unknown) (no (unknown) (unknown) medroxyprogesterone (unit s (unknown) date) (Provera) unknown) (unknown) (no (unknown) (unknown) occurred due to the (unit s (unknown) date) inherent limitations unknown) of voice recognition software. Please (unknown) (no (unknown) (unknown) read the note (units ( unknown) date) carefully and unknown) recognize, using context, where these substitutions (unknown) (no (unknown) (unknown) software. Although (units (unknown) date) every effort is made unknown) to edit content, nuclear scientist errors Result panel 5 (unknown) (no (unknown) (unknown) (no value) (units (unk nown) date) unknown) (unknown) (no (unknown) (unknown) Medications: (units (u nknown) date) unknown) (unknown) (no (unknown) (unknown) Orders: (units (unkno wn) date) unknown) (unknown) (no (unknown) (unknown) Status: Acute (units ( unknown) date) unknown) (unknown) (no (unknown) (unknown) (no value) (units (unk nown) date) unknown) (unknown) (no (unknown) (unknown) (no value) (units (unk nown) date) unknown) (unknown) (no (unknown) (unknown) 11/09/21 (units (unkno wn) date) unknown) (unknown) (no (unknown) (unknown) 13:34 (units (unkno wn) date) unknown) (unknown) (no (unknown) ([place]) [place] [id number] (unit s (unknown) date) unknown) (unknown) (no (unknown) (unknown) Draft (units (unkno wn) date) unknown) (unknown) (no (unknown) (unknown) [facility] unknown) (unknown) (no (unknown) (unknown) Gynecology Visit (units (unknown) date) unknown) (unknown) (no (unknown) (unknown) Start your first (units (unknown) date) pack on the first day unknown) of your next period. 1 tab PO DAILY (unknown) (no (unknown) (unknown) You can expect to (units (unknown) date) start your period 2-3 unknown) days after finishing this medication. (unknown) (no (unknown) (unknown) (no value) (units (unk nown) date) unknown) (unknown) (no (unknown) (unknown) (1) LLQ pain: (units ( unknown) date) unknown) (unknown) (no (unknown) (unknown) (2) Painful (units (un known) date) menstrual periods: unknown) (unknown) (no (unknown) (unknown) (3) PCOS (polycystic (uni ts (unknown) date) ovarian syndrome): unknown) (unknown) (no (unknown) (unknown) 11/09/21 (units (unkno wn) date) unknown) (unknown) (no (unknown) (unknown) 10 mg PO DAILY 10 (units (unknown) date) days 10 tabs 0RF unknown) (unknown) (no (unknown) (unknown) 84 tabs 4RF (units (un known) date) unknown) (unknown) (no (unknown) (unknown) 930 (units (unkno wn) date) unknown) (unknown) (no (unknown) (unknown) Affect: normal (units (unknown) date) affect unknown) (unknown) (no (unknown) (unknown) Age/Sex: 36 / F (units (unknown) date) Date of Service: unknown) (unknown) (no (unknown) (unknown) Allergies (units (unkn own) date) unknown) (unknown) (no (unknown) (unknown) Anesthesia (units (unk nown) date) unknown) (unknown) (no (unknown) (unknown) Appearance: grossly (unit s (unknown) date) normal unknown) (unknown) (no (unknown) (unknown) Assessment + Plan (units (unknown) date) unknown) (unknown) (no (unknown) (unknown) Attending Dr: Iban (uni ts (unknown) date) Suraj Mcwilliams MD unknown) (unknown) (no (unknown) (unknown) Attitude: (units (unkn own) date) cooperative unknown) (unknown) (no (unknown) (unknown) BP 106/68 (units (u nknown) date) unknown) (unknown) (no (unknown) (unknown) Blood Pressure (units (unknown) date) Location Rt unknown) brachial (unknown) (no (unknown) (unknown) Chief Complaint (units (unknown) date) unknown) (unknown) (no (unknown) (unknown) Chief Complaint: LLQ (uni ts (unknown) date) pain unknown) (unknown) (no (unknown) (unknown) Conjunctivae: (units ( unknown) date) conjunctivae normal unknown) (unknown) (no (unknown) (unknown) Const (units (unkno wn) date) unknown) (unknown) (no (unknown) (unknown) : 1985 (units (unknown) date) Acct:[id number] unknown) (unknown) (no (unknown) (unknown) Dept at (units (unkno wn) date) . unknown) (unknown) (no (unknown) (unknown) Details: (units (unkno wn) date) unknown) (unknown) (no (unknown) (unknown) Documented By: (units (unknown) date) Iban Mcwilliams MD unknown) 11/09/21 1334 (unknown) (no (unknown) (unknown) EOM: EOM intact (units (unknown) date) bilaterally unknown) (unknown) (no (unknown) (unknown) Ears: hearing (units ( unknown) date) grossly normal unknown) bilaterally (unknown) (no (unknown) (unknown) Effort + Inspection: (uni ts (unknown) date) normal respiratory unknown) effort and able to speak in complete (unknown) (no (unknown) (unknown) Mercy returns today (uni ts (unknown) date) to discuss PCOS and unknown) follow-up re: her LLQ pain which is (unknown) (no (unknown) (unknown) Exam (units (unkno wn) date) unknown) (unknown) (no (unknown) (unknown) Eyes (units (unkno wn) date) unknown) (unknown) (no (unknown) (unknown) Face and sinus: face (uni ts (unknown) date) symmetric unknown) (unknown) (no (unknown) (unknown) (units (unkno wn) date) unknown) (unknown) (no (unknown) (unknown) General: appearance (unit s (unknown) date) normal, both eyes and unknown) all related structures (unknown) (no (unknown) (unknown) General: (units (unkno wn) date) cooperative, unknown) comfortable and no acute distress (unknown) (no (unknown) (unknown) General: deferred (units (unknown) date) unknown) (unknown) (no (unknown) (unknown) HENMT (units (unkno wn) date) unknown) (unknown) (no (unknown) (unknown) HPI (units (unkno wn) date) unknown) (unknown) (no (unknown) (unknown) Head: normal to (units (unknown) date) inspection, unknown) normocephalic and atraumatic (unknown) (no (unknown) (unknown) Height 5 ft 5 in (unit s (unknown) date) unknown) (unknown) (no (unknown) (unknown) History of (unit s (unknown) date) section (-04/23/17) unknown) (unknown) (no (unknown) (unknown) Intake (units (unkno wn) date) unknown) (unknown) (no (unknown) (unknown) Intake Note: (units (u nknown) date) unknown) (unknown) (no (unknown) (unknown) Intake performed by: (uni ts (unknown) date) Aleksander Banuelos unknown) (unknown) (no (unknown) (unknown) Intake- Clincial (units (unknown) date) Staff unknown) (unknown) (no (unknown) (unknown) Irregular menstrual (unit s (unknown) date) cycle unknown) (unknown) (no (unknown) (unknown) Judgment: judgment (units (unknown) date) good unknown) (unknown) (no (unknown) (unknown) Loc: [facility] (units (unkno wn) date) unknown) (unknown) (no (unknown) (unknown) Medical History (units (unknown) date) (Reviewed 07/30/21 @ unknown) 13:57 by Iban Mcwilliams MD) (unknown) (no (unknown) (unknown) Mental Status: (units (unknown) date) mental status grossly unknown) normal (unknown) (no (unknown) (unknown) Mood: congruent mood (uni ts (unknown) date) unknown) (unknown) (no (unknown) (unknown) Neck (units (unkno wn) date) unknown) (unknown) (no (unknown) (unknown) Neck: normal visual (unit s (unknown) date) inspection unknown) (unknown) (no (unknown) (unknown) New (units (unkno wn) date) unknown) (unknown) (no (unknown) (unknown) No Known Drug (units ( unknown) date) Allergies Allergy unknown) (Verified 07/27/21 09:38) (unknown) (no (unknown) (unknown) Nutritional (units (un known) date) Appearance: average unknown) body habitus (unknown) (no (unknown) (unknown) Orientation: alert (units (unknown) date) and oriented x3 unknown) (unknown) (no (unknown) (unknown) Ovarian cyst (units (u nknown) date) unknown) (unknown) (no (unknown) (unknown) PFSH (units (unkno wn) date) unknown) (unknown) (no (unknown) (unknown) Painful menstrual (units (unknown) date) periods unknown) (unknown) (no (unknown) (unknown) Patient: Mercy Fisher (uni ts (unknown) date) MR#: [id number] unknown) (unknown) (no (unknown) (unknown) Position Sitting (unit s (unknown) date) unknown) (unknown) (no (unknown) (unknown) Previous CT scan is (unit s (unknown) date) shown presence of unknown) diverticulosis but no evidence of acute (unknown) (no (unknown) (unknown) Problem-specific ROS (uni ts (unknown) date) positives included unknown) with the HPI (unknown) (no (unknown) (unknown) Psych (units (unkno wn) date) unknown) (unknown) (no (unknown) (unknown) Pt has been (units (unk nown) date) experiencing all of unknown) the symptoms of a normal menstrual cycle, but no (unknown) (no (unknown) (unknown) Pt here to discuss (units (unknown) date) PCOS and her next unknown) steps (unknown) (no (unknown) (unknown) Pt reports cramping (unit s (unknown) date) is severe and keeps unknown) her from normal activity some days (unknown) (no (unknown) (unknown) ROS (units (unkno wn) date) unknown) (unknown) (no (unknown) (unknown) ROS Narrative (units ( unknown) date) unknown) (unknown) (no (unknown) (unknown) ROS Narrative: (units (unknown) date) unknown) (unknown) (no (unknown) (unknown) Reason For Visit (units (unknown) date) unknown) (unknown) (no (unknown) (unknown) Referral (units (unkno wn) date) Gastroenterology unknown) R10.32 - Left lower quadrant pain (unknown) (no (unknown) (unknown) Referrals (units (unkn own) date) unknown) (unknown) (no (unknown) (unknown) Resp (units (unkno wn) date) unknown) (unknown) (no (unknown) (unknown) Sclera: sclerae (units (unknown) date) normal unknown) (unknown) (no (unknown) (unknown) Signed By: (units (unk nown) date) unknown) (unknown) (no (unknown) (unknown) Smoking Status: (units (unknown) date) Never smoker unknown) (unknown) (no (unknown) (unknown) Speech and Movement: (uni ts (unknown) date) speech and movement unknown) normal (unknown) (no (unknown) (unknown) Surgical History (units (unknown) date) (Reviewed 07/30/21 @ unknown) 13:57 by Iban Mcwilliams MD) (unknown) (no (unknown) (unknown) This note may have (units (unknown) date) been all or partially unknown) generated using voice recognition (unknown) (no (unknown) (unknown) Thought Content: (units (unknown) date) normal unknown) (unknown) (no (unknown) (unknown) Thought Process: (units (unknown) date) normal unknown) (unknown) (no (unknown) (unknown) Tobacco + Substance (unit s (unknown) date) Use unknown) (unknown) (no (unknown) (unknown) Tobacco Status (units (unknown) date) unknown) (unknown) (no (unknown) (unknown) Vision disorder (units (unknown) date) unknown) (unknown) (no (unknown) (unknown) Visit Reasons: PCOS (unit s (unknown) date) Discuss next steps unknown) (unknown) (no (unknown) (unknown) Vitals (units (unkno wn) date) unknown) (unknown) (no (unknown) (unknown) acne as well as hair (uni ts (unknown) date) growth primarily of unknown) the face. Patient does not wish to (unknown) (no (unknown) (unknown) and soft stools but (unit s (unknown) date) she denies dark unknown) stools, mucus, or blood in her stools. (unknown) (no (unknown) (unknown) aside from changes (units (unknown) date) within both ovaries unknown) c/w PCOS. Patient's menses are irregular (unknown) (no (unknown) (unknown) attempt at (uni ts (unknown) date) this time as she does unknown) not have a partner and is not (unknown) (no (unknown) (unknown) bleeding for 2mo (units (unknown) date) unknown) (unknown) (no (unknown) (unknown) diverticulitis. (units (unknown) date) Patient has never unknown) seen a pretzel packer for this complaint. (unknown) (no (unknown) (unknown) drospirenone-ethinyl (uni ts (unknown) date) estradiol 3-0.02 mg unknown) ([place] (28)) (unknown) (no (unknown) (unknown) facial hair growth (units (unknown) date) and to regulate her unknown) cycles. As stated above, her left lower (unknown) (no (unknown) (unknown) have occurred. If (units (unknown) date) there are any unknown) questions, please contact the Medical Records (unknown) (no (unknown) (unknown) may occur. (units (unk nown) date) Occasional wrong-word unknown) or 'sound-alike' substitutions may have (unknown) (no (unknown) (unknown) medroxyprogesterone (unit s (unknown) date) (Provera) unknown) (unknown) (no (unknown) (unknown) occurred due to the (unit s (unknown) date) inherent limitations unknown) of voice recognition software. Please (unknown) (no (unknown) (unknown) pelvic tenderness. (units (unknown) date) GI review of systems unknown) is only notable for alternating hard (unknown) (no (unknown) (unknown) quadrant pain is on (units (unknown) date) changed from previous unknown) examination. Examination at that time (unknown) (no (unknown) (unknown) read the note (units ( unknown) date) carefully and unknown) recognize, using context, where these substitutions (unknown) (no (unknown) (unknown) sentences (units (unkn own) date) unknown) (unknown) (no (unknown) (unknown) sexually active. (units (unknown) date) She would however unknown) like to explore options for reducing acne, (unknown) (no (unknown) (unknown) showed marked (units (u nknown) date) tenderness of the unknown) descending and sigmoid colons but no significant (unknown) (no (unknown) (unknown) software. Although (units (unknown) date) every effort is made unknown) to edit content, nuclear scientist errors (unknown) (no (unknown) (unknown) unchanged. A pelvic (uni ts (unknown) date) US performed in unknown) June [address] [facility] (unknown) (no (unknown) (unknown) was performed for (units (unknown) date) pelvic/LLQ pain and unknown) was found to be entirely unremarkable (unknown) (no (unknown) (unknown) with her most recent (uni ts (unknown) date) occurring in August unknown) 2021 and she has noted increase facial Result panel 6 (unknown) (no (unknown) (unknown) (no value) (units (unk nown) date) unknown) (unknown) (no (unknown) (unknown) Medications: (units (u nknown) date) unknown) (unknown) (no (unknown) (unknown) Orders: (units (unkno wn) date) unknown) (unknown) (no (unknown) (unknown) Status: Acute (units ( unknown) date) unknown) (unknown) (no (unknown) (unknown) (no value) (units (unk nown) date) unknown) (unknown) (no (unknown) (unknown) (no value) (units (unk nown) date) unknown) (unknown) (no (unknown) (unknown) 11/09/21 (units (unkno wn) date) unknown) (unknown) (no (unknown) (unknown) 11/10/21 1513 (units ( unknown) date) unknown) (unknown) (no (unknown) (unknown) 13:34 (units (unkno wn) date) unknown) (unknown) (no (unknown) (unknown) JOSE DAV[place]don[place] [id number] (unit s (unknown) date) unknown) (unknown) (no (unknown) (unknown) [facility] ([facility] date[facility] unknown) (unknown) (no (unknown) (unknown) Gynecology Visit (units (unknown) date) unknown) (unknown) (no (unknown) (unknown) Signed (units (unkno wn) date) unknown) (unknown) (no (unknown) (unknown) Start your first (units (unknown) date) pack on the first day unknown) of your next period. 1 tab PO DAILY (unknown) (no (unknown) (unknown) You can expect to (units (unknown) date) start your period 2-3 unknown) days after finishing this medication. (unknown) (no (unknown) (unknown) (no value) (units (unk nown) date) unknown) (unknown) (no (unknown) (unknown) (1) LLQ pain: (units ( unknown) date) unknown) (unknown) (no (unknown) (unknown) (2) Painful (units (un known) date) menstrual periods: unknown) (unknown) (no (unknown) (unknown) (3) PCOS (polycystic (uni ts (unknown) date) ovarian syndrome): unknown) (unknown) (no (unknown) (unknown) 11/09/21 (units (unkno wn) date) unknown) (unknown) (no (unknown) (unknown) 10 mg PO DAILY 10 (units (unknown) date) days 10 tabs 0RF unknown) (unknown) (no (unknown) (unknown) 84 tabs 4RF (units (un known) date) unknown) (unknown) (no (unknown) (unknown) 930 (units (unkno wn) date) unknown) (unknown) (no (unknown) (unknown) Affect: normal (units (unknown) date) affect unknown) (unknown) (no (unknown) (unknown) Age/Sex: 36 / F (units (unknown) date) Date of Service: unknown) (unknown) (no (unknown) (unknown) Allergies (units (unkn own) date) unknown) (unknown) (no (unknown) (unknown) Anesthesia (units (unk nown) date) unknown) (unknown) (no (unknown) (unknown) Appearance: grossly (unit s (unknown) date) normal unknown) (unknown) (no (unknown) (unknown) Assessment + Plan (units (unknown) date) unknown) (unknown) (no (unknown) (unknown) Attending Dr: Iban (uni ts (unknown) date) Suraj Mcwilliams MD unknown) (unknown) (no (unknown) (unknown) Attitude: (units (unkn own) date) cooperative unknown) (unknown) (no (unknown) (unknown) BP 106/68 (units (u nknown) date) unknown) (unknown) (no (unknown) (unknown) Blood Pressure (units (unknown) date) Location Rt unknown) brachial (unknown) (no (unknown) (unknown) Chief Complaint (units (unknown) date) unknown) (unknown) (no (unknown) (unknown) Chief Complaint: LLQ (uni ts (unknown) date) pain unknown) (unknown) (no (unknown) (unknown) Conjunctivae: (units ( unknown) date) conjunctivae normal unknown) (unknown) (no (unknown) (unknown) Const (units (unkno wn) date) unknown) (unknown) (no (unknown) (unknown) Counseling and (units (unknown) date) educating the unknown) patient/family/caregi stepan: 10 (unknown) (no (unknown) (unknown) : 1985 (units (unknown) date) Acct:[id number] unknown) (unknown) (no (unknown) (unknown) Dept at (units (unkno wn) date) . unknown) (unknown) (no (unknown) (unknown) Details: (units (unkno wn) date) unknown) (unknown) (no (unknown) (unknown) Documented By: (units (unknown) date) Iban Mcwilliams MD unknown) 11/09/21 1334 (unknown) (no (unknown) (unknown) Documenting clinical (uni ts (unknown) date) information in unknown) EHR/Medical record: 10 (unknown) (no (unknown) (unknown) EOM: EOM intact (units (unknown) date) bilaterally unknown) (unknown) (no (unknown) (unknown) Ears: hearing (units ( unknown) date) grossly normal unknown) bilaterally (unknown) (no (unknown) (unknown) Effort + Inspection: (uni ts (unknown) date) normal respiratory unknown) effort and able to speak in complete (unknown) (no (unknown) (unknown) Mercy returns today (uni ts (unknown) date) to discuss PCOS and unknown) follow-up re: her LLQ pain which is (unknown) (no (unknown) (unknown) Exam (units (unkno wn) date) unknown) (unknown) (no (unknown) (unknown) Eyes (units (unkno wn) date) unknown) (unknown) (no (unknown) (unknown) Face and sinus: face (uni ts (unknown) date) symmetric unknown) (unknown) (no (unknown) (unknown) Follow-up will be in (uni ts (unknown) date) 3 months to assess unknown) response to OC's and discuss GI (unknown) (no (unknown) (unknown) GI referral for (units (unknown) date) evaluation of left unknown) lower quadrant pain which is clearly (unknown) (no (unknown) (unknown) (units (unkno wn) date) unknown) (unknown) (no (unknown) (unknown) General: appearance (unit s (unknown) date) normal, both eyes and unknown) all related structures (unknown) (no (unknown) (unknown) General: (units (unkno wn) date) cooperative, unknown) comfortable and no acute distress (unknown) (no (unknown) (unknown) General: deferred (units (unknown) date) unknown) (unknown) (no (unknown) (unknown) HENMT (units (unkno wn) date) unknown) (unknown) (no (unknown) (unknown) HPI (units (unkno wn) date) unknown) (unknown) (no (unknown) (unknown) Head: normal to (units (unknown) date) inspection, unknown) normocephalic and atraumatic (unknown) (no (unknown) (unknown) Height 5 ft 5 in (unit s (unknown) date) unknown) (unknown) (no (unknown) (unknown) History of (unit s (unknown) date) section (-04/23/17) unknown) (unknown) (no (unknown) (unknown) Intake (units (unkno wn) date) unknown) (unknown) (no (unknown) (unknown) Intake Note: (units (u nknown) date) unknown) (unknown) (no (unknown) (unknown) Intake performed by: (uni ts (unknown) date) Aleksander Banuelos unknown) (unknown) (no (unknown) (unknown) Intake- Clincial (units (unknown) date) Staff unknown) (unknown) (no (unknown) (unknown) Irregular menstrual (unit s (unknown) date) cycle unknown) (unknown) (no (unknown) (unknown) Judgment: judgment (units (unknown) date) good unknown) (unknown) (no (unknown) (unknown) Loc: [facility] (units (unkno wn) date) unknown) (unknown) (no (unknown) (unknown) Medical History (units (unknown) date) (Reviewed 07/30/21 @ unknown) 13:57 by Iban Mcwilliams MD) (unknown) (no (unknown) (unknown) Mental Status: (units (unknown) date) mental status grossly unknown) normal (unknown) (no (unknown) (unknown) Mood: congruent mood (uni ts (unknown) date) unknown) (unknown) (no (unknown) (unknown) Neck (units (unkno wn) date) unknown) (unknown) (no (unknown) (unknown) Neck: normal visual (unit s (unknown) date) inspection unknown) (unknown) (no (unknown) (unknown) New (units (unkno wn) date) unknown) (unknown) (no (unknown) (unknown) No Known Drug (units ( unknown) date) Allergies Allergy unknown) (Verified 07/27/21 09:38) (unknown) (no (unknown) (unknown) Nutritional (units (un known) date) Appearance: average unknown) body habitus (unknown) (no (unknown) (unknown) Obtaining and/or (units (unknown) date) reviewing separately unknown) obtained history: 5 (unknown) (no (unknown) (unknown) Orientation: alert (units (unknown) date) and oriented x3 unknown) (unknown) (no (unknown) (unknown) Ovarian cyst (units (u nknown) date) unknown) (unknown) (no (unknown) (unknown) PFSH (units (unkno wn) date) unknown) (unknown) (no (unknown) (unknown) Painful menstrual (units (unknown) date) periods unknown) (unknown) (no (unknown) (unknown) Patient: Mercy Fisher (uni ts (unknown) date) MR#: [id number] unknown) (unknown) (no (unknown) (unknown) Plan (units (unkno wn) date) unknown) (unknown) (no (unknown) (unknown) Position Sitting (unit s (unknown) date) unknown) (unknown) (no (unknown) (unknown) Preparing to see the (uni ts (unknown) date) patient, i.e., chart unknown) review, review of tests: 5 (unknown) (no (unknown) (unknown) Previous CT scan is (unit s (unknown) date) shown presence of unknown) diverticulosis but no evidence of acute (unknown) (no (unknown) (unknown) Problem-specific ROS (uni ts (unknown) date) positives included unknown) with the HPI (unknown) (no (unknown) (unknown) Psych (units (unkno wn) date) unknown) (unknown) (no (unknown) (unknown) Pt has been (units (unk nown) date) experiencing all of unknown) the symptoms of a normal menstrual cycle, but no (unknown) (no (unknown) (unknown) Pt here to discuss (units (unknown) date) PCOS and her next unknown) steps (unknown) (no (unknown) (unknown) Pt reports cramping (unit s (unknown) date) is severe and keeps unknown) her from normal activity some days (unknown) (no (unknown) (unknown) ROS (units (unkno wn) date) unknown) (unknown) (no (unknown) (unknown) ROS Narrative (units ( unknown) date) unknown) (unknown) (no (unknown) (unknown) ROS Narrative: (units (unknown) date) unknown) (unknown) (no (unknown) (unknown) Reason For Visit (units (unknown) date) unknown) (unknown) (no (unknown) (unknown) Referral (units (unkno wn) date) Gastroenterology unknown) R10.32 - Left lower quadrant pain (unknown) (no (unknown) (unknown) Referrals (units (unkn own) date) unknown) (unknown) (no (unknown) (unknown) Referring and (units ( unknown) date) communicating with unknown) other health professionals: 5 (unknown) (no (unknown) (unknown) Resp (units (unkno wn) date) unknown) (unknown) (no (unknown) (unknown) Sclera: sclerae (units (unknown) date) normal unknown) (unknown) (no (unknown) (unknown) Signed By: (units (unk nown) date) <Electronically unknown) signed by Iban Mcwilliams MD> (unknown) (no (unknown) (unknown) Smoking Status: (units (unknown) date) Never smoker unknown) (unknown) (no (unknown) (unknown) Speech and Movement: (uni ts (unknown) date) speech and movement unknown) normal (unknown) (no (unknown) (unknown) Surgical History (units (unknown) date) (Reviewed 07/30/21 @ unknown) 13:57 by Iban Mcwilliams MD) (unknown) (no (unknown) (unknown) This note may have (units (unknown) date) been all or partially unknown) generated using voice recognition (unknown) (no (unknown) (unknown) Thought Content: (units (unknown) date) normal unknown) (unknown) (no (unknown) (unknown) Thought Process: (units (unknown) date) normal unknown) (unknown) (no (unknown) (unknown) Time Coding Minutes (unit s (unknown) date) Spent: (must be on unknown) same date of service/appointment) (unknown) (no (unknown) (unknown) Time Spent (units (unk nown) date) unknown) (unknown) (no (unknown) (unknown) Tobacco + Substance (unit s (unknown) date) Use unknown) (unknown) (no (unknown) (unknown) Tobacco Status (units (unknown) date) unknown) (unknown) (no (unknown) (unknown) Total Time: 35 (units (unknown) date) unknown) (unknown) (no (unknown) (unknown) Vision disorder (units (unknown) date) unknown) (unknown) (no (unknown) (unknown) Visit Reasons: PCOS (unit s (unknown) date) Discuss next steps unknown) (unknown) (no (unknown) (unknown) Vitals (units (unkno wn) date) unknown) (unknown) (no (unknown) (unknown) Will withdrawal (units (unknown) date) patient to MP a 10 mg unknown) daily times 10 days and initiate [place] [facility]'s (unknown) (no (unknown) (unknown) acne as well as hair (uni ts (unknown) date) growth primarily of unknown) the face. Patient does not wish to (unknown) (no (unknown) (unknown) and soft stools but (unit s (unknown) date) she denies dark unknown) stools, mucus, or blood in her stools. (unknown) (no (unknown) (unknown) aside from changes (units (unknown) date) within both ovaries unknown) c/w PCOS. Patient's menses are irregular (unknown) (no (unknown) (unknown) associated with the (unit s (unknown) date) descending and unknown) sigmoid colon. (unknown) (no (unknown) (unknown) at the start of her (unit s (unknown) date) withdrawal bleed. unknown) (unknown) (no (unknown) (unknown) attempt at (uni ts (unknown) date) this time as she does unknown) not have a partner and is not (unknown) (no (unknown) (unknown) ay occur. (units (unkn own) date) Occasional wrong-word unknown) or 'sound-alike' substitutions may have (unknown) (no (unknown) (unknown) bleeding for 2mo (units (unknown) date) unknown) (unknown) (no (unknown) (unknown) diverticulitis. (units (unknown) date) Patient has never unknown) seen a pretzel packer for this complaint. (unknown) (no (unknown) (unknown) drospirenone-ethinyl (uni ts (unknown) date) estradiol 3-0.02 mg unknown) ([place] (28)) (unknown) (no (unknown) (unknown) facial hair growth (units (unknown) date) and to regulate her unknown) cycles. As stated above, her left lower (unknown) (no (unknown) (unknown) findings. (units (unkn own) date) unknown) (unknown) (no (unknown) (unknown) have occurred. If (units (unknown) date) there are any unknown) questions, please contact the Medical Records (unknown) (no (unknown) (unknown) medroxyprogesterone (unit s (unknown) date) (Provera) unknown) (unknown) (no (unknown) (unknown) occurred due to the (unit s (unknown) date) inherent limitations unknown) of voice recognition software. Please (unknown) (no (unknown) (unknown) pelvic tenderness. (units (unknown) date) GI review of systems unknown) is only notable for alternating hard (unknown) (no (unknown) (unknown) quadrant pain is on (units (unknown) date) changed from previous unknown) examination. Examination at that time (unknown) (no (unknown) (unknown) read the note (units ( unknown) date) carefully and unknown) recognize, using context, where these substitutions (unknown) (no (unknown) (unknown) sentences (units (unkn own) date) unknown) (unknown) (no (unknown) (unknown) sexually active. (units (unknown) date) She would however unknown) like to explore options for reducing acne, (unknown) (no (unknown) (unknown) showed marked (units (u nknown) date) tenderness of the unknown) descending and sigmoid colons but no significant (unknown) (no (unknown) (unknown) software. Although (units (unknown) date) every effort is made unknown) to edit content, nuclear scientist errors m (unknown) (no (unknown) (unknown) unchanged. A pelvic (uni ts (unknown) date) US performed in unknown) June [address] [facility] (unknown) (no (unknown) (unknown) was performed for (units (unknown) date) pelvic/LLQ pain and unknown) was found to be entirely unremarkable (unknown) (no (unknown) (unknown) with her most recent (uni ts (unknown) date) occurring in August unknown) 2021 and she has noted increase facial Social History date description facility (no date) Never smoked tobacco ([facility] Vital Signs date measurement value units [id number] BP_diastolic BP_diastolic 68 mm[H g] [id number]+0000 BP_systolic BP_systolic 106 mm[Hg] [id number]+0000 height_metric height_metric 165.1 cm [id number] height_standard height_standard 65 in
== END 2021-12-18 16:55 | disposition left against medical advice (07) ==
LOC: ED 16:34
DX: Z53.21 Procedure and treatment not carried out due to patient leaving prior to being seen by health care provider (principal)